=== PATIENT | female | born 1975 | race Caucasian/White ===

== ENCOUNTER 2020-09-26 13:59 | Outpatient (REF) | payer OTHER, SELFPAY | END 2020-09-26 14:00 | disposition home or self-care (01) | LOC: HO.LAB 13:59 | PROVIDERS: PCP Internal Medicine; Visit Provider Internal Medicine | DX: Z20.828 Contact with and (suspected) exposure to other viral communicable diseases (principal) | CPT/HCPCS: 36415; C9803; U0003 ==

== ENCOUNTER 2021-06-28 11:47 | Emergency (ER) | payer OTHER, SELFPAY ==
--- NOTE | ~2021-06-28 | XR_ITS ---
EXAMINATION: XR CHEST CLINICAL INFORMATION: Chest tightness. COMPARISON: None TECHNIQUE: Frontal view of the chest was obtained. FINDINGS: Interval expanded and clear. Heart size and pulmonary vascularity is normal. No gross bony abnormality. XR/XR chest 1V IMPRESSION: Unremarkable chest exam.
--- NOTE | 2021-06-28 12:02 | ECG_ITS ---
Test Reason : CHEST PAIN Blood Pressure : / mmHG Vent. Rate : 072 BPM Atrial Rate : 072 BPM P-R Int : 136 ms QRS Dur : 100 ms QT Int : 394 ms P-R-T Axes : 036 -16 030 degrees QTc Int : 431 ms Normal sinus rhythm Low voltage QRS Incomplete right bundle branch block Borderline ECG When compared with ECG of 31-OCT-2017 12:44, No significant change was found Referred By: Generic ED Physician Electronically Signed By:NOA GR
[2021-06-28 13:02] LABS: Influenza A PCR NEGATIVE (Negative); Influenza B PCR NEGATIVE (Negative); Resp Syncy Virus RNA Qual PCR NEGATIVE (Negative); SARS COV2 PCR INHOUSE NEGATIVE (Negative)
[2021-06-28 13:08] VITALS: BP 124/82; PULSE 74; RESP 18; TEMP 36.9; O2SAT 97; BMI 31.1
[2021-06-28 18:00] VITALS: BP 119/79; PULSE 69; RESP 17; TEMP 36.7; O2SAT 96
--- NOTE | 2021-06-28 19:05 | ED.URI ---
HPI - URI/Sore Throat General Chief Complaint: Dyspnea Stated Complaint: chest tightness diff breathing cough fever Time Seen by Provider: 06/28/21 19:05 Source: patient Mode of arrival: ambulatory Limitations: no limitations History of Present Illness HPI Narrative: 45-year-old female presents with upper respiratory symptoms for over 2 weeks. States that she has been using her albuterol and her DuoNeb inhalers with poor effect. She normally gets bronchitis twice a year during the peak of her allergies. MD elicited complaint: cough, rhinorrhea, nasal congestion and sinus pain Pertinent past history: sinusitis, asthma, seasonal allergies and other (Chronic bronchitis) Onset (ago): week(s) (3) Consistency: constant Severity: moderate Description of mucous: clear and watery Able to tolerate fluids by mouth: No Exacerbating factors: speaking and deep breaths Relieving factors: nothing Associated symptoms: voice changes, nasal congestion, sore throat, cough and shortness of breath Related Data Previous Rx's Medication Instructions Recorded azithromycin 250 mg tablet 250 mg PO DAILY #4 tab 06/28/21 benzonatate 100 mg capsule 100 mg PO TID PRN #30 cap 06/28/21 (Vincent Gaytan) prednisone 20 mg tablet 40 mg PO DAILY 4 Days #8 tab 06/28/21 Allergies Allergy/AdvReac Type Severity Reaction Status Date / Time acetaminophen [From Tylenol] Allergy Unknown HIVES Verified 06/28/21 13:07 gabapentin [GABAPENTIN] Allergy Unknown HIVES Verified 06/28/21 13:07 oxycodone Allergy Itching Verified 06/28/21 13:08 Review of Systems Review of Systems: Constitutional: No Fever, No Chills ENT/Mouth: No Ear Pain, positive Hoarseness, positive sore throat Eyes: No Eye Pain, No Swelling, No Redness, No Foreign Body Cardiovascular: No Chest Pain, No SOB Respiratory: Positive Cough, positive Dyspnea Gastrointestinal: No Nausea, No Vomiting, No Diarrhea, No abdominal Pain Genitourinary: No Dysuria, No Hematuria Musculoskeletal: No joint pain, No Myalgias, No Joint Swelling Skin: No Skin lacerations, No rash Neuro: No Weakness, No Numbness, No Paresthesias, No Loss of Consciousness, No Dizziness, No Headache Psych: No Anxiety/Panic, No Depression Heme/Lymph: no easy bruising, no Lymphadenopathy Endocrine: No Polyuria, No Polydipsia Yes all other systems are reviewed and are negative REPLACED BY [facility] Past Medical History Attestation statement: The following information was validated with the patient. Source: old records reviewed Medical History Pulmonary embolism Social History Social History Advance Directives: No Advance Directives Information Provided: No Patient : No Physical Exam Vital Signs: Vital Signs: Last Vital Signs Temp 98.1 F 06/28/21 18:00 Pulse 69 06/28/21 18:00 Resp 17 06/28/21 18:00 BP 119/79 06/28/21 18:00 Pulse Ox 96 06/28/21 18:00 Body Mass Index 31.1 Appearance: Alert. Oriented X3. Mild distress. Eyes: Pupils equal, round and reactive to light. Sclera nonicteric. ENT: Pharynx normal. Voice is hoarse. Moist mucous membranes. Neck: Normal inspection. Neck supple. No cervical lymphadenopathy. CVS: Normal heart rate and rhythm. Pulses normal. Respiratory: No respiratory distress. Minimal scattered wheezes at the bases. Even unlabored respirations. Abdomen: Soft and nontender. Skin: Skin warm and dry. Normal skin color. Normal skin turgor. Extremities: No lower extremity edema. Gait well balanced well coordinated. Neuro: No motor deficit. No sensory deficit. Cranial nerves 2-12 intact. Course Course Course Narrative: Patient presents with approximately 3 weeks of upper respiratory symptoms. Gets chronic bronchitis twice a year in the spring and in the fall, was unable to get appointment with her primary care. Patient is afebrile, nontoxic appearing, has been using her albuterol and DuoNeb inhalers with poor effect. X-rays are negative, lung sounds have minimal wheezing at the bases with good air flow. Even unlabored respirations. O2 sat 97% on room air with normal heart rate of 74. COVID test is negative. Azithromycin and prednisone burst as patient does have prolonged symptoms, asthma, and seasonal allergies. Patient verbalized understanding of and agrees to plan of care discharge home. MDM - URI/Sore Throat Differential Diagnosis Differential diagnosis: Likely upper respiratory infection, otitis media, sinusitis, viral infection, bronchitis, influenza and pharyngitis Medical Records Attestation: I reviewed the patient's medical records. Lab Data Attestation: I reviewed the patient's lab results. Labs: Lab Results 06/28/21 Range/Units 12:15 Coronavirus (PCR) NEGATIVE (Negative) Influenza Type A (PCR) NEGATIVE (Negative) Influenza Type B (PCR) NEGATIVE (Negative) RSV RNA Qual (PCR) NEGATIVE (Negative) Imaging Data Chest x-ray: Attestation: I personally reviewed and interpreted this imaging study as follows: Radiologist's impression: EXAMINATION: XR CHEST CLINICAL INFORMATION: Chest tightness. COMPARISON: None TECHNIQUE: Frontal view of the chest was obtained. FINDINGS: Interval expanded and clear. Heart size and pulmonary vascularity is normal. No gross bony abnormality. XR/XR chest 1V IMPRESSION: Unremarkable chest exam. ? ECG Data Attestation: I personally reviewed and interpreted this ECG as follows: ECG interpretation date: 06/28/21 ECG interpretation time: 12:15 Prior ECG tracings: available for review Interpretation: Vent. rate 72 BPM NV interval 136 ms QRS duration 100 ms QT/QTc 394/431 ms P-R-T axes 36 -16 30 Normal sinus rhythm Low voltage QRS Incomplete right bundle branch block Borderline ECG When compared with ECG of 31-OCT-2017 12:44, No significant change was found Discharge Plan Discharge Clinical Impression: Bronchitis Patient Disposition: Home, Self-Care Instructions: Acute Bronchitis (ED) Additional Instructions: You were evaluated for upper respiratory symptoms. Please take azithromycin and prednisone as directed. Use Tessalon Perles as needed for cough. Thank you for choosing this emergency department for evaluation. Please follow-up with primary care physician as needed. Return to the emergency department for any new, concerning, or worsening symptoms. Prescriptions: New azithromycin 250 mg tablet 250 mg PO DAILY Qty: 4 RF: 0 prednisone 20 mg tablet 40 mg PO DAILY 4 Days Qty: 8 RF: 0 benzonatate [Tessalon Perles] 100 mg capsule 100 mg PO TID PRN (Reason: cough) Qty: 30 RF: 0 Stand Alone Forms: Work/School Release Interventions: ED Discharge Assessment Last Done: 06/28/21 19:30 Discharge Date/Time: 06/28/21 19:34
[2021-06-28] MEDS: predniSONE 20 MG TABLET 40 MG PO (19:27)
[2021-06-28] MEDS: Benzonatate 100 MG CAPSULE PO (19:27)
[2021-06-28] MEDS: Azithromycin 500 MG TABLET PO (19:27)
== END 2021-06-28 19:34 | disposition home or self-care (01) ==
PROVIDERS: Emergency Provider Emergency Medicine; PCP Internal Medicine
DX: J40 Bronchitis, not specified as acute or chronic (principal); J45.909 Unspecified asthma, uncomplicated; Z79.899 Other long term (current) drug therapy; Z86.711 Personal history of pulmonary embolism; Z20.822 Contact with and (suspected) exposure to COVID-19
CPT/HCPCS: 0241U; 36415; 71045; 93005; 99283; 99284

== ENCOUNTER 2021-07-10 18:06 | Emergency (ER) | payer OTHER, SELFPAY ==
[2021-07-10 19:08] VITALS: BP 138/88; PULSE 73; RESP 18; TEMP 36.7; O2SAT 100; BMI 30.1
[2021-07-10] MEDS: Ibuprofen 600 MG TABLET PO (19:13)
[2021-07-10 19:57] VITALS: BP 127/76; PULSE 62; RESP 16; TEMP 36.7; O2SAT 96
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
[2021-07-10] MEDS: Cyclobenzaprine HCl 10 MG TABLET PO (21:06)
[2021-07-10] MEDS: Lidocaine 4 % Patch ADH..PATCH 1 PATCH TRANSDERMA (21:07)
== END 2021-07-10 22:06 | disposition home or self-care (01) ==
PROVIDERS: Emergency Provider Emergency Medicine; PCP Internal Medicine
DX: S39.012A Strain of muscle, fascia and tendon of lower back, initial encounter (principal); M54.2 Cervicalgia; V89.2XXA Person injured in unspecified motor-vehicle accident, traffic, initial encounter; Y93.9 Activity, unspecified; Y92.410 Unspecified street and highway as the place of occurrence of the external cause; Y99.9 Unspecified external cause status
CPT/HCPCS: 99283; 99284

== ENCOUNTER 2023-07-21 13:45 | Outpatient (AMB) | payer OTHER, SELFPAY ==
--- NOTE | 2023-07-21 13:51 | A.OFFVIS_ITS ---
Intake Intake Visit Reasons: abd pain, U/S shows gallstones Intake Note: This patient presents for an assessment for abdominal pain. Patient c/o; Onset 6 weeks, reports occasional RUQ pain, US done at [place]. Regulatory Submissions Specialist Required: No Accompanied by: Other Relationship Allergies acetaminophen [From Tylenol] Allergy (Unknown, Verified 07/21/23 13:54) HIVES gabapentin [GABAPENTIN] Allergy (Unknown, Verified 07/21/23 13:54) HIVES oxycodone Allergy (Verified 07/21/23 13:54) Itching Medication List - Last Reconciled 07/21/23 by Bernardo Trinh MD albuterol sulfate 90 mcg/actuation inhalation azithromycin 250 mg PO DAILY benzonatate (Tessalon Perles) 100 mg PO TID PRN budesonide-formoterol 160-4.5 mcg/actuation (Symbicort) 2 puffs inhalation BID cyclobenzaprine 5 mg PO Q8H PRN 5 days fexofenadine 180 mg PO DAILY fluticasone propion-salmeterol 230-21 mcg/actuation (Advair HFA) 2 puffs inhalation BID lidocaine 5% (Lidoderm) 1 patch topical DAILY PRN MDD remove after 12 hours montelukast 10 mg PO BEDTIME naproxen 500 mg PO BID PRN 10 days prednisone 40 mg (2 x 20 mg) PO DAILY 4 days HPI abd pain, U/S shows gallstones HPI Details 47[facility] She says for the past 2-3 months, she has been having frequent episodes of right upper quadrant pain and tenderness. She says that these radiate to the back. She does not recall a significant aggravating factor. She does state that she also has frequent bloating with meals. She had an ultrasound done as an outpatient and this showed gallstones. She was therefore referred to me by her primary care physician. [facility] Medical History (Updated 07/21/23 @ 14:05 by Bernardo Trinh MD) Asthma Gallstones Pulmonary embolism Surgical History (Updated 07/10/21 @ 19:11 by Kellen Mukherjee RN) Previous back surgery Review of Systems Const Denies chills and Denies fever(s) Card Denies chest pain, Denies dyspnea and Denies dyspnea on exertion Resp Denies cough, Denies dyspnea and Denies dyspnea on exertion GI Denies hematochezia and Denies change in bowel habits Denies hematuria Musc Denies back pain and Denies limited range of motion Neuro Denies focal weakness and Denies convulsions Psych Denies depression and Denies mood swings Physical Exam Const General: comfortable and no acute distress Orientation/consciousness: patient oriented x3 Neck Neck: Yes no lymphadenopathy Resp Auscultation: clear to auscultation bilaterally Cardio Rhythm: regular rhythm GI Palpation (GI): Soft to palpation, nontender and no guarding Neuro General: patient oriented x3 Assessment & Plan Assessment & Plan (1) Gallstones: Code(s): K80.20 - Calculus of gallbladder without cholecystitis without obstruction Plan: She describes periodic right upper quadrant pain being to the back. This has been going on for about 2-3 months. She her ultrasound shows gallstones. Her symptoms are suggestive of biliary colic. I explained to her the technique of laparoscopic cholecystectomy and possible open cholecystectomy. I reviewed the risks including but not limited to bleeding, infections, injury to other organs including bowel, liver and the bile ducts, retained stones, bile leak, as well as the benefits and alternatives. She says she understands and wants to proceed. She has history of PE after suffering a leg fracture in 2009. She was on anticoagulation for about a year. I have disc of her ultrasound done in [facility]. I will review this with our radiologist. Coding Level of Care Code New Pt Level 3 (80159) Diagnoses Gallstones K80.20
== END 2023-07-21 14:07 | disposition home or self-care (01) ==
PROVIDERS: PCP Internal Medicine; Visit Provider Surgery
DX: K80.20 Calculus of gallbladder without cholecystitis without obstruction (principal)
CPT/HCPCS: 99203

== ENCOUNTER → 2023-07-21 13:45 | Outpatient (BNVA) | payer OTHER, SELFPAY | PROVIDERS: PCP Internal Medicine; Visit Provider Surgery ==

== ENCOUNTER 2023-08-19 06:51 | Day surgery (SDC) | payer OTHER, SELFPAY ==
--- NOTE | 2023-08-18 09:56 | HO.ANESPROP2 ---
Documented by User: Sofia Blum NP 08/18/23 09:56 HPI - Anesthesia Eval Consult details Narrative: 48yo F for Cholecystectomy Laparoscopic, possible open PMFSH Active Problems Active Problems: All Active Problems (Updated 08/13/23 @ 07:45 by Haley Roberts RN) Asthma (Acute) Gallstones (Acute) Past Medical History Medical History Asthma Gallstones Pulmonary embolism Surgical History Surgical History Previous back surgery Social History Patient Tobacco Use Status: Former Tobacco user Quit Date: 7 years ago Use of substances other than those prescribed or required for medical reasons: Yes Substance Use Frequency: Occasionally Are you DNR?: No Advance Directives: No Advance Directives Information Provided: Yes Meds Allergies Allergy/AdvReac Type Severity Reaction Status Date / Time acetaminophen [From Tylenol] Allergy Unknown HIVES Verified 08/19/23 07:30 gabapentin [GABAPENTIN] Allergy Unknown HIVES Verified 08/19/23 07:30 oxycodone Allergy Itching Verified 08/19/23 07:30 Home Medications Medication Instructions Recorded Confirmed Last Taken Type albuterol sulfate 90 mcg/actuation 90 mcg inhalation NEEDED 07/21/23 08/19/23 08/19/23 History aerosol inhaler budesonide-formoterol HFA 160 2 puff inhalation BID 07/21/23 07/21/23 Unknown History mcg-4.5 mcg/actuation aerosol inhaler (Symbicort) fexofenadine 180 mg tablet 180 mg PO DAILY 07/21/23 07/21/23 Unknown History fluticasone propionate 230 2 puff inhalation BID 07/21/23 07/21/23 Unknown History mcg-salmeterol 21 mcg/actuation HFA inhaler (Advair HFA) montelukast 10 mg tablet 10 mg PO BEDTIME 07/21/23 07/21/23 Unknown History Assessment and Plan Assessment Anesthesia Assessment: Chart Reviewed Documented by User: Linda Chaudhari MD 08/19/23 08:53 PMFSH Active Problems Active Problems: All Active Problems (Updated 08/19/23 @ 08:35 by Linda Chaudhari MD) Asthma (Acute)- used albuterol inhaler this morning Gallstones (Acute) H/o pulmonary emboli x 2- 2010 (immobilization, bcp, ankle fracture. Anticoagulants x 1yr). 2018 following immobilization- Anticoagulated x 6 months. No testing for hypercoagulable stste Back pain. H/o back surgery Past Medical History Medical History Asthma Gallstones Pulmonary embolism Family History Family history of problems with anesthesia: No Surgical History Surgical History Previous back surgery History of Problems with Anesthesia: No Social History Patient Tobacco Use Status: Former Tobacco user Quit Date: 7 years ago Use of substances other than those prescribed or required for medical reasons: Yes Substance Use Frequency: Occasionally Are you DNR?: No Advance Directives: No Advance Directives Information Provided: Yes Meds Allergies Allergy/AdvReac Type Severity Reaction Status Date / Time acetaminophen [From Tylenol] Allergy Unknown HIVES Verified 08/19/23 07:30 gabapentin [GABAPENTIN] Allergy Unknown HIVES Verified 08/19/23 07:30 oxycodone Allergy Itching Verified 08/19/23 07:30 Home Medications Medication Instructions Recorded Confirmed Last Taken Type albuterol sulfate 90 mcg/actuation 90 mcg inhalation NEEDED 07/21/23 08/19/23 08/19/23 History aerosol inhaler budesonide-formoterol HFA 160 2 puff inhalation BID 07/21/23 07/21/23 Unknown History mcg-4.5 mcg/actuation aerosol inhaler (Symbicort) fexofenadine 180 mg tablet 180 mg PO DAILY 07/21/23 07/21/23 Unknown History fluticasone propionate 230 2 puff inhalation BID 07/21/23 07/21/23 Unknown History mcg-salmeterol 21 mcg/actuation HFA inhaler (Advair HFA) montelukast 10 mg tablet 10 mg PO BEDTIME 07/21/23 07/21/23 Unknown History Exam Height,Weight and Vital Signs: Height 5 ft 3 in Weight 72.688 kg Vital Signs Temp Pulse Resp BP Pulse Ox O2 Del Method 08/19/23 07:26 98.6 F 74 18 121/73 98 Room Air Pertinent Lab Results Pertinent Lab Results: Lab Results 08/19/23 Range/Units 07:15 Urine Test NEGATIVE (NEGATIVE) Airway Mallampati Class: II TM Dist: >3cm Neck ROM: Full Loose/Missing/Broken Teeth: No (Denies broken, loose, missing teeth) Heart: RRR Lungs: CTAB. No wheezes Assessment and Plan Assessment Anesthesia Assessment: Anesthesia Plan Discussed Final Anesthetic Review Family History of Problems with Anesthesia: No History of Problems with Anesthesia: No NPO: Yes ASA Class: II Final Preanesthetic Review: No Changes in Pt Med Stat, Meds/Allgs Chart Reviewed, Consent Obtained/Reviewed and Anes Risks/Benef Reviewed Patient Risk: Intermediate Procedure Risk: Intermediate Assessment/Block/Sedation in SS: Assess/Block/Sedation- Anesthetic Plan Anesthetic Plan: GA Disposition: Standard PACU
[2023-08-19] VITALS (12 sets, daily range): BP systolic 100–124; BP diastolic 58–73; PULSE 46–74; RESP 12–18; TEMP 36.2–37; O2SAT 94–100; BMI 28.4
[2023-08-19 07:31] LABS: UPreg QC Valid YES; Urine Pregnancy NEGATIVE (NEGATIVE)
--- NOTE | 2023-08-19 08:18 | MHC.SHP ---
Pre-Procedural Eval Section A Date of Service: 08/19/23 The patient is an INPATIENT: No Changes since office visit: No Cold of Flu in the past 2 weeks, No New Medical Problems, No Changes in Medication and No Patient answered all questions The History & Physical has been completed within 30 days and I have reviewed it.: Yes Section B Chief Complaint: Calculus of gallbladder without cholecystitis with Allergies: Allergies Allergy/AdvReac Type Severity Reaction Status Date / Time acetaminophen [From Tylenol] Allergy Unknown HIVES Verified 08/19/23 07:30 gabapentin [GABAPENTIN] Allergy Unknown HIVES Verified 08/19/23 07:30 oxycodone Allergy Itching Verified 08/19/23 07:30 Plan I have reviewed the history and physical and performed a pertinent physical examination on my patient. No changes have occurred unless specified. Time Spent With Patient Time: Total time managing care of this patient today ____ minutes.
--- NOTE | 2023-08-19 09:48 | P.OP_ITS ---
Operative Note Operative Note Date of Service: 08/19/23 Narrative: Preop diagnosis: Cholelithiasis with symptoms Postop diagnosis: The same Procedure: Laparoscopic cholecystectomy Surgeon: Bernardo Trinh MD tourist information assistant: ELA Maloney The patient is a 48-year-old female periodically right upper quadrant pain, with gallstones seen on ultrasound. In view of symptoms, she wants to proceed with cholecystectomy. She understood the technique of laparoscopic cholecystectomy. She was aware of the risks, benefits, and alternatives. She was brought to the operating room. She was placed supine under general anesthesia via endotracheal tube. The abdomen was prepped and draped in the usual sterile fashion. A surgical time-out was done. The patient received Cefotan 2 g IV preoperatively I made a short incision on the skin in the supraumbilical margin using a blade 15. This was carried down with blunt dissection the full-thickness of the subcutaneous fat down to the fascia . The she was incised. The peritoneum was entered. Through this incision a Seth port was introduced. Pneumoperitoneum was introduced to a pressure of 15 mmHg. From here on the rest of the procedure was done under vision with a 10 mm laparoscope . With laparoscopic visua lization, I proceeded to insert a 5/12 bili 40 the gastric area below the subcostal margin as well as two 5 mm ports on the subcostal margin along the anterior axillary line and the midclavicular line. Graspers were applied through these working ports. The patient is placed in a head-up and [id number] position. The gallbladder was seen and this was supple and not inflamed. We were able to apply grasper the fundus and this was used to retract the gallbladder cephalad. Another grasper was applied on the pouch of the gallbladder and this was used to retract the gallbladder laterally. At this point the gallbladder was be new tract in the cephalad and lateral fashion to put the area of the cystic duct on stretch. I proceeded to use the [place] dissector to clear the neck of the gallbladder until I was able to identify the cystic duct. I carefully dissected the cystic duct until I was able to confirm its confluence with the neck of the gallbladder. By doing so, I was able to achieve a critical view of the hepatic cystic triangle. The cystic artery was clearly identified and there were no other structures seen in this area. With the confluence of the cyst duct with the neck of the gallbladder confirmed, I proceeded to apply clips on the cystic duct with 2 clips being applied distally. The cystic duct was then transected between clips with Endo scissors. I then apply clips on the cystic artery and this was transected between clips with Endo scissors. Two clips had been applied distally . With traction on the gallbladder away from the liver bed, I proceeded to then used the electrocautery spatula to divide across the hilum. I incised the peritoneum of the gallbladder wall and created a plane of dissection the gallbladder wall and the liver bed. I the gallbladder along this well-defined plane of dissection using a combination of blunt dissection with the tip of the spatula as well as electrocautery. I continued with this dissection all the fundus until the entire gallbladder is completely from the liver bed. The gallbladder was retrieved through an endobag through the umbilical incision . I reinserted all ports and re-insufflated. I examined all 4 quadrants and there was no other pathology or any evidence of any bowel injury seen. There was no bile leak in the area of dissection. There was no bleeding . I therefore desufflated through the port sites. I removed all ports under vision with the laparoscope. a laparoscopic. The umbilical port was removed last. The fascia of the umbilical incision was closed with a [id number] Polysorb 0 stitch. Skin closure was achieved on all incisions using Monocryl 4- 0 subcuticular running sutures. The incisions were infiltrated with Marcaine 0.5% for postop analgesia. Dressings were applied. The procedure was completed. The patient tolerated procedure well. There were no immediate complications. Initial and final counts of sponges and instruments were correct. Estimated blood loss was about 10 cc The patient was extubated without difficulty and transferred to the recovery room with stable vital signs.
[2023-08-19] MEDS: oxyCODONE HCl Immed Release 5 MG TABLET PO (10:19)
[2023-08-19] MEDS: fentaNYL citrate/PF 100 MCG/2 ML VIAL 25 MCG IVPUSH ×2 (10:42→10:48)
== END 2023-08-19 11:20 | disposition home or self-care (01) ==
PROVIDERS: Nurse Practitioner; PCP Internal Medicine; Visit Provider Surgery
PROC: 0FT44ZZ Resection of Gallbladder, Percutaneous Endoscopic Approach (ICD-10-PCS; CPT 47562; principal; 2023-08-19 09:10)
DX: K80.10 Calculus of gallbladder with chronic cholecystitis without obstruction (principal); J45.909 Unspecified asthma, uncomplicated; Z79.51 Long term (current) use of inhaled steroids; Z79.899 Other long term (current) drug therapy; Z86.711 Personal history of pulmonary embolism; Z88.5 Allergy status to narcotic agent; Z88.8 Allergy status to other drugs, medicaments and biological substances; Z87.891 Personal history of nicotine dependence
CPT/HCPCS: 47562; 81025; 88304; J0131; J0665; J1885; J2250; J2405; J2704; J3010

== ENCOUNTER → 2023-08-19 06:51 | Outpatient (BNV) | payer OTHER, SELFPAY | PROVIDERS: PCP Internal Medicine; Visit Provider Surgery | DX: K80.20 Calculus of gallbladder without cholecystitis without obstruction (principal) | CPT/HCPCS: 47562 ==

== ENCOUNTER 2023-09-01 10:06 | Outpatient (AMB) | payer OTHER, SELFPAY ==
--- NOTE | 2023-09-01 10:19 | A.OFFVIS_ITS ---
Intake Vital Signs 09/01/23 10:28 Height 5 ft 2 in Weight 159 lb BMI 29.1 BP 96/52 L Blood Pressure Location Lt brachial Position Sitting Pulse 68 Intake Visit Reasons: S/P lap nathen Intake Note: This patient presents for a post-op assessment status post laparoscopic cholecystectomy. Pt c/o; admits to some diarrhea, and sore/tender, incision on the left side is protuding per pt, denies any other concerns Utilization Management Um Nurse Required: No Accompanied by: Self / Same As Patient Allergies acetaminophen [From Tylenol] Allergy (Unknown, Verified 09/01/23 10:28) HIVES gabapentin [GABAPENTIN] Allergy (Unknown, Verified 09/01/23 10:28) HIVES oxycodone Allergy (Verified 09/01/23 10:) Itching HPI S/P lap nathen HPI Details She underwent laparoscopic cholecystectomy as an outpatient last 08/19/2023. She tolerated procedure well. She currently denies significant complaints. She says she feels well overall. [facility] Medical History Asthma Gallstones Pulmonary embolism Surgical History History of laparoscopic cholecystectomy (~08/19/23) Previous back surgery Social History Patient Tobacco Use Status: Former Tobacco user Quit Date: 7 years ago Review of Systems Const Denies chills and Denies fever(s) Card Denies chest pain, Denies dyspnea and Denies dyspnea on exertion Resp Denies cough, Denies dyspnea and Denies dyspnea on exertion GI Denies hematochezia and Denies change in bowel habits Denies hematuria Musc Denies back pain and Denies limited range of motion Neuro Denies focal weakness and Denies convulsions Psych Denies depression and Denies mood swings Physical Exam Vital Signs: Last Vital Signs Pulse 68 09/01/23 10:28 BP 96/52 L 09/01/23 10:28 BMI result Body Mass Index 29.1 Const General: comfortable and no acute distress Eyes Sclerae: sclerae normal GI Other: All incisions are well healed Palpation (GI): Soft to palpation, not firm and nontender Assessment & Plan Assessment & Plan (1) Gallstones: Code(s): K80.20 - Calculus of gallbladder without cholecystitis without obstruction Plan: Status post laparoscopic cholecystectomy. She is doing very well postoperatively. All incisions are well healed. I advised her to avoid any lifting more than 20 lb for at least 2-3 more weeks. She can otherwise follow up on a p.r.n. basis. Coding Level of Care Code Global (06835) Diagnoses Gallstones K80.20
[2023-09-01 10:28] VITALS: BP 96/52; PULSE 68; BMI 29.1
== END 2023-09-01 10:47 | disposition home or self-care (01) ==
PROVIDERS: PCP Internal Medicine; Visit Provider Surgery
DX: K80.20 Calculus of gallbladder without cholecystitis without obstruction (principal)
CPT/HCPCS: 99024

== ENCOUNTER → 2023-09-01 10:06 | Outpatient (BNVA) | payer OTHER, SELFPAY | PROVIDERS: PCP Internal Medicine; Visit Provider Surgery ==

== ENCOUNTER 2024-01-08 13:58 | Outpatient (REF) | payer OTHER, SELFPAY ==
--- NOTE | ~2024-01-08 | XR_ITS ---
EXAMINATION: XR CHEST CLINICAL INFORMATION: Unspecified asthma, uncomplicated COMPARISON: Chest 06/28/2021, CT chest 05/05/2019 TECHNIQUE: 2 views of the chest were obtained. FINDINGS: No significant abnormality is noted involving the heart, lungs, mediastinum, bony thorax or soft tissues. Surgical clips are seen in the right upper quadrant. 4 mm and smaller nodules seen on CT chest 05/05/2019 are too small to be appreciated on chest radiograph. XR/XR chest 2V IMPRESSION: No acute cardiopulmonary disease.
[2024-01-08 14:52] LABS: MANUAL DIFF FLAG NO
[2024-01-08 15:35] LABS: Basophils Percent Auto 0.5 % (0-2); Eosinophils Absolute Auto 0.5 X10*3/uL (0.0-0.4); Hematocrit 42.2 % (37.0-47.0); Hemoglobin 14.7 g/dl (12.0-16.0); Imm Gran Abs Auto 0.02 X10*3/uL (0.00-0.03); Imm Gran Pct Auto 0.3 % (0.0-0.4); Lymphocytes Absolute Auto 2.5 X10*3/uL (1.2-4.9); Lymphocytes Percent Auto 34.1 % (20-40); Mean Corpuscular HGB Conc 34.8 g/dl (31.0-35.0); Mean Corpuscular Hemoglobin 31.3 pg (27.0-33.0); Mean Platelet Volume 10.2 fL (9.4-12.3); Monocytes Absolute Auto 0.6 X10*3/uL (0.1-1.2); Monocytes Percent Auto 8.1 % (2-11); Neutrophils Absolute Auto 3.7 x10*3/uL (2.0-8.3); Platelet Count 277 X10*3/uL (160-400); Red Blood Count 4.69 X10*6/uL (4.20-5.50); Red Cell Distribution Width 11.9 % (11.0-16.0); White Blood Count 7.4 X10*3/uL (4.8-10.8)
== END 2024-01-08 13:59 | disposition home or self-care (01) ==
LOC: HO.XRAY 13:58
PROVIDERS: PCP Internal Medicine; Visit Provider Internal Medicine
DX: J45.909 Unspecified asthma, uncomplicated (principal)
CPT/HCPCS: 36415; 71046; 85025

== ENCOUNTER 2024-01-08 13:58 | Outpatient (AMB) | payer OTHER, SELFPAY ==
[2024-01-08 14:05] VITALS: BP 102/70; PULSE 66; O2SAT 97; BMI 29.6
--- NOTE | 2024-01-08 14:05 | MHC.OFFVIS ---
Vital Signs 01/08/24 14:05 Height 5 ft 2 in Weight 162 lb 0.636 oz BMI 29.6 BP 102/70 Blood Pressure Location Lt brachial Position Sitting Pulse 66 Pulse Source Pulse Oximeter Pulse Oximetry (%) 97 Oxygen Delivery Method Room Air Intake Visit Reasons: Asthma Intake Note: pt is here at a new patient, for asthma triggered by allergies. 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: No Allergies acetaminophen [From Tylenol] Allergy (Unknown, Verified 01/08/24 14:23) HIVES gabapentin [GABAPENTIN] Allergy (Unknown, Verified 01/08/24 14:23) HIVES oxycodone Allergy (Verified 01/08/24 14:23) Itching Medication List - Last Reconciled 01/08/24 by Maria R Lux MD albuterol sulfate 90 mcg/actuation 90 mcg inhalation NEEDED benzonatate 100 mg PO TID PRN budesonide-formoterol 160-4.5 mcg/actuation (Symbicort) 2 puffs inhalation BID cetirizine (Zyrtec) 10 mg PO DAILY PRN cyclobenzaprine 5 mg PO Q8H PRN 5 days ibuprofen 600 mg PO Q6H PRN lidocaine 5% (Lidoderm) 1 patch topical DAILY PRN MDD remove after 12 hours montelukast 10 mg PO BEDTIME naproxen 500 mg PO BID PRN 10 days Do you need a note to return to daycare/school/sports/work: No HPI HPI Asthma: Details: THIS 48 YEARS OLD VERY PLEASANT FEMALE IS BEING SEEN FOR THE 1ST TIME FOR, ONGOING MANAGEMENT OF HER BRONCHIAL ASTHMA AND ALLERGIC RHINITIS. SHE HAS HAD SYMPTOMS OF ASTHMA SINCE ABOUT 3-4 YEARS AGO. HER SYMPTOMS ARE MORE IN SPRING AND FALL MONTHS, BUT TO A LESSER EXTENT AROUND THE WHOLE YEAR. SHE HAS HISTORY OF ALLERGY TO ANIMALS, DUST AND OTHER ENVIRONMENTAL AGENTS. SHE HAS 1 DOG AT HOME AND HER DAUGHTER HAS 2 PUPPIES, ALSO A CT. SHE DESCRIBES HER SYMPTOMS GETTING WORSE DUE TO SEASONAL CHANGES. SINCE SHE WAS STARTED ON MONTELUKAST HER NASAL CONGESTION AND FREQUENCY OF WHEEZING HAS BEEN MUCH LESS. ALSO SINCE SHE WAS STARTED ON SYMBICORT SHORTNESS OF BREATH COUGH OR WHEEZING BECAME CONTROLLED AND MINIMAL. SHE HAS NEVER REQUIRED TO BE IN THE HOSPITAL. SHE REMAINS ACTIVE AND WORKS FULL-TIME ON A DAILY BASIS. SHE WORKS IN THE [employer] DEPARTMENT FOR [employer] 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 FORMERLY [facility] Medical History Allergic rhinitis Asthma Gallstones Pulmonary embolism Surgical History History of laparoscopic cholecystectomy (~08/19/23) Previous back surgery Social History Patient Tobacco Use Status: Former Tobacco user Quit Date: 7 years ago Review of Systems Const All systems reviewed & are unremarkable except as noted in HPI and below Eyes Reports no additional complaints ENT Reports nasal congestion (INTERMITTENT) and Reports nasal discharge (INTERMITTENT) Card Reports no additional complaints Resp Reports as per HPI GI Reports no additional complaints Reports no additional complaints Musc Reports no additional complaints Skin/Breast Reports system reviewed and no additional complaints, except as documented Neuro Reports no additional complaints Psych Reports no additional complaints Endo Reports no additional complaints Thad/Lymph Reports no additional complaints Physical Exam Vital Signs: Last Vital Signs Pulse 66 01/08/24 14:05 BP 102/70 01/08/24 14:05 Pulse Ox 97 01/08/24 14:05 Oxygen Delivery Method Room Air 01/08/24 14:05 BMI result Body Mass Index 29.6 Const General: healthy appearing, comfortable, no acute distress, alert and awake Orientation/consciousness: patient oriented x3 HEENT Head: Yes normal to inspection General nose exam: No nasal polyps present and No nasal discharge present Face and sinus: Yes sinuses nontender Mouth: oropharynx normal Throat: Yes posterior oropharynx normal Eyes General: appearance normal, both eyes and all related structures Neck Neck: Yes normal visual inspection, Yes no lymphadenopathy, Yes trachea midline and Yes no JVD Thyroid: Thyroid normal Chest Chest palpation & inspection: normal inspection of the chest and no tenderness Resp Other: PERCUSSION NOTE RESONANT, BOTH LUNGS ARE CLEAR TO AUSCULTATION, NO WHEEZES OR RHONCHI ARE HEARD. Cardio Palpation: normal PMI Rate: regular rate Rhythm: regular rhythm Heart sounds: no gallops and no murmurs Peripheral pulses: Peripheral pulses 2+ throughout GI Palpation (GI): Soft to palpation, nontender, No hepatosplenomegaly present and no masses Auscultation: normal bowel sounds Back/Spine/Pelvis Thoracic/Lumbar Spine: thoracic and lumbar spine normal to inspection Skin General skin exam: no rashes or lesions noted Neuro General: patient oriented x3 and no focal motor deficits Cranial nerves: Yes CN's II-XII intact bilaterally Extrem General: Yes normal to inspection, Yes no clubbing, cyanosis or edema and Yes no calf tenderness Psych Appearance: grossly normal and well kempt Speech and movement: Normal speech and movement present Assessment & Plan Assessment & Plan (1) Asthma: Comment: LONG-TIME HISTORY OF BRONCHIAL ASTHMA, MOSTLY ALLERGIC, . WELL CONTROLLED WITH CURRENT MED Code(s): J45.909 - Unspecified asthma, uncomplicated Category: Medical Plan: PULMONARY FUNCTION TEST A BASELINE IS ORDERED. CHEST X-RAY , AND CBC WITH DIFF ARE ORDERED BASELINE CONTINUE SYMBICORT 160-4.52 PUFFS B.I.D.. AND USE PROAIR 2 PUFFS Q 4-6 HOURS ONLY P.R.N. (2) Allergic rhinitis: Comment: CHRONIC ALLERGIC RHINITIS SECONDARY TO ENVIRONMENTAL AND SEASONAL ALLERGIES. SHE HAS DONE MUCH BETTER SINCE SHE IS ON MONTELUKAST. Code(s): J30.9 - Allergic rhinitis, unspecified Category: Medical Plan: STAY AWAY FROM THE ANIMALS. CONTINUE MONTELUKAST 10 MG DAILY. ZYRTEC 10 MG HAVE FOR 1 TABLET ONLY P.R.N. FOR RUNNY NOSE Orders: Orders XR chest 2V Today J30.9 - Allergic rhinitis, unspecified, J45.909 - Unspecified asthma, uncomplicated Complete Blood Count Auto Diff Today J30.9 - Allergic rhinitis, unspecified, J45.909 - Unspecified asthma, uncomplicated PFT pulmonary function test Today J30.9 - Allergic rhinitis, unspecified, J45.909 - Unspecified asthma, uncomplicated Medications: New budesonide-formoterol 160-4.5 mcg/actuation 2 puffs inhalation Q12H 90 days 10.2 grams 3RF ASTHMA albuterol sulfate 90 mcg/actuation 2 puffs inhalation Q4-6H 30 days PRN 8.5 grams 3RF shortness of breath or wheezing montelukast 10 mg PO DAILY 90 days 90 tabs 3RF ALLERGIC RHINITIS Changed From benzonatate (Tessalon Perles) 100 mg PO TID PRN 30 caps 0RF cough To benzonatate 100 mg PO TID PRN 30 caps 0RF cough
== END 2024-01-08 14:42 | disposition home or self-care (01) ==
PROVIDERS: PCP Internal Medicine; Visit Provider Internal Medicine
DX: J45.909 Unspecified asthma, uncomplicated (principal); J30.9 Allergic rhinitis, unspecified
CPT/HCPCS: 99203

== ENCOUNTER 2024-05-31 09:58 | Outpatient (AMB) | payer OTHER, SELFPAY ==
[2024-05-31 10:07] VITALS: BP 106/74; PULSE 61; O2SAT 97; BMI 28.8
--- NOTE | 2024-05-31 10:07 | MHC.PC.OV ---
Vital Signs 05/31/24 10:07 Height 5 ft 2 in Weight 157 lb 4 oz BMI 28.8 BP 106/74 Blood Pressure Location Rt brachial Position Sitting Pulse 61 Pulse Source Pulse Oximeter Pulse Oximetry (%) 97 Oxygen Delivery Method Room Air Intake Visit Reasons: JOB BOSS/Allergies/Asthma Intake Note: Pt is here today as a new patient. Allergies acetaminophen [From Tylenol] Allergy (Unknown, Verified 05/31/24 10:31) HIVES gabapentin [GABAPENTIN] Allergy (Unknown, Verified 05/31/24 10:31) HIVES oxycodone Allergy (Verified 05/31/24 10:31) Itching Medication List - Last Reconciled 05/31/24 by Liana Shepherd MD albuterol sulfate 90 mcg/actuation 2 puffs inhalation Q4-6H PRN 30 days budesonide-formoterol 160-4.5 mcg/actuation 2 puffs inhalation Q12H 90 days cetirizine (Zyrtec) 10 mg PO DAILY PRN hydroxyzine HCl 10 mg PO DAILY PRN ibuprofen 600 mg PO Q6H PRN montelukast 10 mg PO DAILY 90 days Tobacco use date assessed: 05/31/24 Dental Screening Dental Screen Date: 05/31/24 Did you have a dental visit in the last 12 months?: Yes Did you have a dental problem in the last 6 months where you did not have access to dental care?: No Was dental information given to patient?: Patient has dentist HPI JOB BOSS/Allergies/Asthma HPI Details 48-year-old lady, new to practice, here today to establish care with new PCP and for follow-up on her seasonal allergies and mild intermittent asthma . She is currently taking budesonide/formoterol 2 puffs twice a day, and has albuterol inhaler for rescue for episodes of bronchospasm. She also takes cetirizine 10 mg at bedtime as needed and montelukast 10 mg daily. Has been complaining having intermittent episodes of anxiety attacks, usually occurring at night, has not been seen or followed by psychiatry or therapist in the past. She also has been diagnosed to have supraventricular tachycardia, previously was being seen by Dr. Ben Hill, still having intermittent episodes of palpitations, needs referral to another dental resident in the area [facility] Medical History (Updated 05/31/24 @ 11:01 by Laina Shepherd MD) Paroxysmal SVT (supraventricular tachycardia) History of miscarriage, not currently Endometriosis Hx pulmonary embolism Hx of deep venous thrombosis History of fracture of right ankle Anxiety disorder Allergic rhinitis Asthma Gallstones Pulmonary embolism Surgical History (Updated 05/31/24 @ 10:46 by Liana Shepherd MD) History of appendectomy History of lumbar discectomy History of laparoscopic cholecystectomy (~08/19/23) Previous back surgery Family History (Updated 05/31/24 @ 10:49 by Liana Shepherd MD) Mother No problems noted. Daughter Owen-Danlos syndrome Sister Bronchial asthma Brother Drug abuse Suicide Social History (Updated 05/31/24 @ 10:49 by Liana Shepherd MD) Housing: House Alcohol intake: current Alcohol intake frequency: holidays/special occasions only Patient Tobacco Use Status: Former Tobacco user e-Cigarette/Vaping Use: Never Used service: No Current occupational status: employed Cognitive needs: No Hearing needs: No Vision needs: Yes Female Reproductive History Menstrual Date of last menstrual period: 05/17/24 Date of last [place] 03/01/22 [place] [facility] [place]epithelial [place] or malignancy, negative for HPV[place] Date of Mammogram: 01/18/23 [place] [facility] [place] mammographic evidence of malignancy seen) Questionnaire PHQ-9 Over the last 2 weeks, how often have you been bothered by any of the following problems? 1. Little interest or pleasure in doing things: several days 2. Feeling down, depressed, or hopeless: several days 3. Trouble falling or staying asleep, or sleeping too much: several days 4. Feeling tired or having little energy: more than half the days 5. Poor appetite or overeating: several days 6. Feeling bad about yourself - or that you are a failure or have let yourself or your family down: several days 7. Trouble concentrating on things, such as reading the newspaper or watching television: not at all 8. Moving or speaking so slowly that other people could have noticed. Or the opposite - being so fidgety or restless that you have been moving around a lot more than usual: not at all 9. Thoughts that you would be better off or of hurting yourself in some way: not at all Total score: 7 Depression Screening Interpretation: Negative Depression Screening Done: Yes 54645 - PHQ-9 Billing: Yes Source: Developed by Drs. Mickey Thurman, Ramona Zavala, Shaan Chapin and colleagues, with an educational chucky from [employer]. Thrive Questionnaire Date Thrive assessed: 05/31/24 I am a: Patient What is your living situation today?: I have a steady place to live Within the past 12 months, did the food you bought not last and you didn't have the money to get more?: Never true Within the past 12 months, did you worry whether your food would run out before you got money to buy more?: Never true Do you have trouble paying for medicines?: No Do you have trouble getting transportation to medical appointments?: No Do you have trouble paying your heating and electricity bill?: No Do you have trouble taking care of your child, family member or friend?: No Do you have trouble with day-to-day activities such as bathing, preparing meals, shopping, managing finances, etc.?: No Are you currently unemployed and looking for a job?: No Are you interested in more education?: No Please select the resources that you would like help with: None Currently or been in a relationship where the following occur: No concerns reported THRIVE Score: 0 AUDIT C Alcohol Use Questionnaire (AUDIT-C) 1. How often do you have a drink containing alcohol?: 2-4 times a month 2. How many drinks containing alcohol do you have on a typical day when you are drinking?: 1 or 2 3. How often do you have six or more drinks on one occasion?: Never Total Score: 2 Score Reviewed/Action Taken: Yes HANNAH-7 AMB Questionnaire HANNAH-7 Date HANNAH - 7 assessed: 05/31/24 Feeling nervous, anxious, or on edge: 1 = Several days Not being able to stop or control worryin = Several days Worrying too much about different things: 1 = Several days Trouble relaxin = Nearly every day Being so restless that it is hard to sit still: 1 = Several days Becoming easily annoyed or irritable: 1 = Several days Feeling afraid as if something awful might happen: 1 = Several days Total HANNAH-7 score (0-4 normal; 5-9 mild; 10-14 moderate; 15-21 severe): 9 Source: Developed by Drs. Mickey Thurman, Ramona Zavala, Shaan Chapin and colleagues, with an educational chucky from [employer]. HANNAH-7 Assessment Billing HANNAH-7 Assessment Tool: HANNAH-7 Assessment 08689 Review of Systems Const Denies body aches, Denies fatigue, Denies fever(s), Denies headache(s) and Denies weakness Eyes Denies change in vision, Denies eye discharge and Denies itchy eyes ENT Denies dizziness, Denies headache(s) and Denies sore throat Card Denies chest pain, Denies lightheadedness, Denies palpitations and Denies dyspnea Resp Denies chest congestion, Denies cough, Denies dyspnea and Denies wheezing GI Denies abdominal pain, Denies change in bowel habits and Denies heartburn Denies hematuria, Denies urinary frequency, Denies dysuria and Denies urinary urgency Musc Reports no additional complaints Skin/Breast Denies breast pain, Denies breast mass, Denies lesions and Denies rash Neuro Denies dizziness, Denies headache(s) and Denies weakness Psych Reports no additional complaints Endo Denies fatigue, Denies polydipsia, Denies polyuria and Denies palpitations Thad/Lymph Denies easy bruising Aller/Immun Denies itchy eyes, Denies seasonal rhinorrhea and Denies wheezing Physical exam (Primary Care) Vital Signs: Last Vital Signs Pulse 61 05/31/24 10:07 BP 106/74 05/31/24 10:07 Pulse Ox 97 05/31/24 10:07 Oxygen Delivery Method Room Air 05/31/24 10:07 BMI result Body Mass Index 28.8 Tobacco/Smoking Status: Tobacco use Status Tobacco use date assessed 05/31/24 05/31/24 10:12 Patient Tobacco Use Status Former Tobacco user 05/31/24 10:49 e-Cigarette/Vaping Use Never Used 05/31/24 10:49 PHQ-9: PHQ-9 Score PHQ-9: Total score 7 05/31/24 10:50 Depression Screening Interpretation: Negative Thrive Assessment: Date of Thrive Assessment Date Thrive assessed 05/31/24 05/31/24 10:12 Currently or been in a relationship where the following occur: No concerns reported Const General: no acute distress and alert Orientation/consciousness: patient oriented x3 HENMT Ears: external ears normal, TM's normal bilaterally and EAC's normal General nose exam: Normal external nose present and No nasal discharge present Mouth: Normal oral and palatal mucosa present, oropharynx normal and moist mucous membranes Eyes General: appearance normal, both eyes and all related structures Conjunctivae: conjunctivae normal Sclerae: sclerae normal Pupils: Equal, round and reactive pupils present EOM: EOMs intact bilaterally Neck Neck: Yes full ROM, Yes no lymphadenopathy and Yes supple Resp Effort & Inspection: normal respiratory effort and able to speak in complete sentences Auscultation: clear to auscultation bilaterally Cardio Rate: regular rate Rhythm: regular rhythm Heart sounds: S1 normal heart sound present and S2 normal heart sound present GI Palpation (GI): Soft to palpation, nontender and no masses Auscultation: normal bowel sounds Back/Spine/Pelvis Back: No back tenderness Skin General skin exam: no rashes or lesions noted Neuro General: patient oriented x3, gait normal, tone normal, moves all extremities, Normal light touch and pain sensation and no focal motor deficits Cranial nerves: Yes CN's II-XII intact bilaterally and Yes Equal, round and reactive pupils present Cognition (Neuro): normal cognition Extrem General: Yes full ROM, Yes no joint enlargement, Yes no clubbing, cyanosis or edema and Yes no calf tenderness Psych Appearance: grossly normal and well kempt Mental Status: mental status grossly normal Speech and movement: Normal speech and movement present Affect: normal affect Attitude: cooperative Thought process: Normal thought process present Thought content: Normal thought content present, suicidality and no homicidality Assessment and Plan Assessment & Plan (1) Anxiety disorder: Code(s): F41.9 - Anxiety disorder, unspecified Qualifiers: Anxiety disorder type: generalized anxiety disorder Qualified Code(s): F41.1 - Generalized anxiety disorder Plan: Prescription sent for hydroxyzine 10 mg once a day as needed for acute anxiety attacks only, do not take together with Zyrtec (2) Allergic rhinitis: Comment: CHRONIC ALLERGIC RHINITIS SECONDARY TO ENVIRONMENTAL AND SEASONAL ALLERGIES. SHE HAS DONE MUCH BETTER SINCE SHE IS ON MONTELUKAST. Code(s): J30.9 - Allergic rhinitis, unspecified Qualifiers: Allergic rhinitis seasonality: seasonal Allergic rhinitis trigger: unspecified Qualified Code(s): J30.2 - Other seasonal allergic rhinitis Plan: Continue on montelukast 10 mg daily, has cetirizine 10 mg once a day as needed (3) Asthma: Comment: LONG-TIME HISTORY OF BRONCHIAL ASTHMA, MOSTLY ALLERGIC, . WELL CONTROLLED WITH CURRENT MED, previously seen by Dr Ingram , now sees Dr Lux Code(s): J45.909 - Unspecified asthma, uncomplicated Qualifiers: Asthma complication type: uncomplicated Asthma persistence: intermittent Asthma severity: mild Qualified Code(s): J45.20 - Mild intermittent asthma, uncomplicated Plan: Continue on montelukast 10 mg daily, has Symbicort 160-4.5 mcg per actuation inhaler, to use 2 inhalations twice a day, gargle mouth after use. Has albuterol inhaler for rescue (4) Paroxysmal SVT (supraventricular tachycardia): Comment: previously Followed by Dr. Ben Hill Code(s): I47.10 - Supraventricular tachycardia, unspecified Plan: Referred to cardiology at [facility] [place] Orders: Referrals Cardiology Referral I47.10 - Supraventricular tachycardia, unspecified Medications: New hydroxyzine HCl 10 mg PO DAILY PRN 30 tabs 1RF Anxiety attacks Refilled montelukast 10 mg PO DAILY 90 tabs 3RF ALLERGIC RHINITIS 90 days Coding Level of Care Code Est Pt Level 4 (94179) Complex EM visit Add On G2211 Diagnoses Generalized anxiety disorder F41.1 Anxiety disorder type: generalized anxiety disorder Seasonal allergic rhinitis, unspecified trigger J30.2 Allergic rhinitis seasonality: seasonal Allergic rhinitis trigger: unspecified Mild intermittent asthma without complication J45.20 Asthma complication type: uncomplicated Asthma persistence: intermittent Asthma severity: mild Paroxysmal SVT (supraventricular tachycardia) I47.10 Additional Codes HANNAH-7 Assessment Billing - HANNAH-7 Assessment Tool: HANNAH-7 Assessment [id number] ([id number])
== END 2024-05-31 11:14 | disposition home or self-care (01) ==
PROVIDERS: PCP Internal Medicine; Visit Provider Internal Medicine
DX: F41.1 Generalized anxiety disorder (principal); J30.2 Other seasonal allergic rhinitis; J45.20 Mild intermittent asthma, uncomplicated; I47.10 Supraventricular tachycardia, unspecified
CPT/HCPCS: 96127; 99214

== ENCOUNTER 2024-08-30 13:23 | Outpatient (AMB) | payer OTHER, SELFPAY ==
[2024-08-30 14:02] VITALS: BP 104/70; PULSE 63; O2SAT 96; BMI 29.3
--- NOTE | 2024-08-30 14:02 | A.OFFPC_ITS ---
Vital Signs 08/30/24 14:02 Height 5 ft 2 in Weight 160 lb BMI 29.3 BP 104/70 Blood Pressure Location Lt brachial Position Sitting Pulse 63 Pulse Source Pulse Oximeter Pulse Oximetry (%) 96 Oxygen Delivery Method Room Air Intake Visit Reasons: Annual PE/Per Dr. Shepherd Intake Note: Pt is here today for her PE: Last mammogram 01/18/23, papsmear 03/01/2022 Allergies acetaminophen [From Tylenol] Allergy (Unknown, Verified 09/05/24 22:22) HIVES gabapentin [GABAPENTIN] Allergy (Unknown, Verified 09/05/24 22:22) HIVES oxycodone Allergy (Verified 09/05/24 22:22) Itching Medication List - Last Reconciled 08/30/24 by Liana Shepherd MD albuterol sulfate 90 mcg/actuation 2 puffs inhalation Q4-6H PRN 30 days budesonide-formoterol 160-4.5 mcg/actuation 2 puffs inhalation Q12H 90 days cetirizine (Zyrtec) 10 mg PO DAILY PRN hydroxyzine HCl 10 mg PO DAILY PRN ibuprofen 600 mg PO Q6H PRN Tobacco use date assessed: 08/30/24 Dental Screening Dental Screen Date: 08/30/24 Did you have a dental visit in the last 12 months?: Yes Did you have a dental problem in the last 6 months where you did not have access to dental care?: No Was dental information given to patient?: Patient has dentist HPI Annual PE/Per Dr. Shepherd HPI Details - The patient is a 49-year-old female pr esenting for her physical exam and for follow-up on chronic conditions including past incidents of DVT, pulmonary embolism, and asthma. - She reported a history of DVT in 2010 following a right ankle fracture and aga in post-back surgery in 2018, and later had pulmonary embolisms bilaterally. Treatment for DVT included one year on Coumadin in 2009 and six months on Eliquis in 2018. - History of paroxysmal supraventricular tachycardia noted, without diagnosis of atrial fibrillation. - Asthma is currently managed with Albut sara and Budesonide. - She experienced severe depression whil e on Montelukast, which resolved after discontinuation. - Back pain persists despite prior disk surgery; non-surgical management includes physical therapy and analgesics. - Right ankle fracture in the past with associated nerve damage noted, causing occasional shooting pains. - Known family history of hyperthyroidis m . -overdue for her breast cancer screening , last mammogram 01/18/23, up-to-date with her papsmear done at [facility] 03/01/2022 with negative findings [facility] Medical History (Updated 08/30/24 @ 14:50 by Liana Shepherd MD) Family history of thyroid disease in mother Paroxysmal SVT (supraventricular tachycardia) History of miscarriage, not currently Endometriosis Hx pulmonary embolism Hx of deep venous thrombosis History of fracture of right ankle Anxiety disorder Allergic rhinitis Asthma Gallstones Pulmonary embolism Surgical History History of appendectomy History of lumbar discectomy History of laparoscopic cholecystectomy (~08/19/23) Previous back surgery Family History Mother No problems noted. Daughter Owen-Danlos syndrome Sister Bronchial asthma Substance use disorder Mental health disorder Brother Drug abuse Suicide Mental health disorder Substance use disorder Father Substance use disorder Maternal Aunt Substance use disorder Maternal Grandfather Substance use disorder Social History Housing: House Alcohol intake: current Alcohol intake frequency: holidays/special occasions only Patient Tobacco Use Status: Former Tobacco user e-Cigarette/Vaping Use: Never Used service: No Current occupational status: employed Cognitive needs: No Hearing needs: No Vision needs: Yes Questionnaire PHQ-9 Over the last 2 weeks, how often have you been bothered by any of the following problems? 1. Little interest or pleasure in doing things: not at all 2. Feeling down, depressed, or hopeless: not at all 3. Trouble falling or staying asleep, or sleeping too much: not at all 4. Feeling tired or having little energy: not at all 5. Poor appetite or overeating: not at all 6. Feeling bad about yourself - or that you are a failure or have let yourself or your family down: not at all 7. Trouble concentrating on things, such as reading the newspaper or watching television: not at all 8. Moving or speaking so slowly that other people could have noticed. Or the opposite - being so fidgety or restless that you have been moving around a lot more than usual: not at all 9. Thoughts that you would be better off or of hurting yourself in some way: not at all Total score: 0 Depression Screening Interpretation: Negative Depression Screening Done: Yes 80310 - PHQ-9 Billing: Yes Source: Developed by Drs. Mickey Thurman, Ramona Zavala, Shaan Chapin and colleagues, with an educational chucky from [employer] Thrive Questionnaire Date Thrive assessed: 08/30/24 I am a: Patient What is your living situation today?: I have a steady place to live Within the past 12 months, did the food you bought not last and you didn't have the money to get more?: Never true Within the past 12 months, did you worry whether your food would run out before you got money to buy more?: Never true Do you have trouble paying for medicines?: No Do you have trouble getting transportation to medical appointments?: No Do you have trouble paying your heating and electricity bill?: No Do you have trouble taking care of your child, family member or friend?: No Do you have trouble with day-to-day activities such as bathing, preparing meals, shopping, managing finances, etc.?: No Are you currently unemployed and looking for a job?: No Are you interested in more education?: No Please select the resources that you would like help with: None Currently or been in a relationship where the following occur: No concerns reported THRIVE Score: 0 AUDIT C Alcohol Use Questionnaire (AUDIT-C) 1. How often do you have a drink containing alcohol?: Monthly or less 2. How many drinks containing alcohol do you have on a typical day when you are drinking?: 1 or 2 3. How often do you have six or more drinks on one occasion?: Never Total Score: 1 HANNAH-7 AMB Questionnaire HANNAH-7 Date HANNAH - 7 assessed: 08/30/24 Feeling nervous, anxious, or on edge: 0 = Not at all Not being able to stop or control worryin = Not at all Worrying too much about different things: 0 = Not at all Trouble relaxin = Not at all Being so restless that it is hard to sit still: 0 = Not at all Becoming easily annoyed or irritable: 0 = Not at all Feeling afraid as if something awful might happen: 0 = Not at all Total HANNAH-7 score (0-4 normal; 5-9 mild; 10-14 moderate; 15-21 severe): 0 Source: Developed by Drs. Mickey Thurman, Ramona Zavala, Shaan Chapin and colleagues, with an educational chucky from [employer]. HANNAH-7 Assessment Billing HANNAH-7 Assessment Tool: HANNAH-7 Assessment 56687 Review of Systems Const Denies body aches, Denies fatigue, Denies fever(s), Denies headache(s) and Denies weakness Eyes Denies change in vision, Denies eye discharge and Denies itchy eyes ENT Denies dizziness, Denies headache(s) and Denies sore throat Card Denies chest pain, Denies lightheadedness, Denies palpitations and Denies dyspnea Resp Denies chest congestion, Denies cough, Denies dyspnea and Denies wheezing GI Denies abdominal pain, Denies change in bowel habits and Denies heartburn Denies hematuria, Denies urinary frequency, Denies dysuria and Denies urinary urgency Musc Reports no additional complaints Skin/Breast Denies breast pain, Denies breast mass, Denies lesions and Denies rash Neuro Denies dizziness, Denies headache(s) and Denies weakness Psych Reports no additional complaints Endo Denies fatigue, Denies polydipsia, Denies polyuria and Denies palpitations Thad/Lymph Denies easy bruising Aller/Immun Denies itchy eyes, Denies seasonal rhinorrhea and Denies wheezing Physical exam (Primary Care) Vital Signs: Last Vital Signs Pulse 63 08/30/24 14:02 BP 104/70 08/30/24 14:02 Pulse Ox 96 08/30/24 14:02 Oxygen Delivery Method Room Air 08/30/24 14:02 BMI result Body Mass Index 29.3 Tobacco/Smoking Status: Tobacco use Status Tobacco use date assessed 08/30/24 08/30/24 14:16 Patient Tobacco Use Status Former Tobacco user 08/30/24 14:03 e-Cigarette/Vaping Use Never Used 08/30/24 14:03 PHQ-9: PHQ-9 Score PHQ-9: Total score 0 08/30/24 14:33 Depression Screening Interpretation: Negative Thrive Assessment: Date of Thrive Assessment Date Thrive assessed 08/30/24 08/30/24 14:16 Currently or been in a relationship where the following occur: No concerns reported Advance Care Planning discussion: Completed/Scanned Date of discussion: 08/30/24 Who was present: Patient Forms completed: Health Care Proxy Time spent: 16-45 minutes Actual minutes spent: 3 Const General: no acute distress and alert Orientation/consciousness: patient oriented x3 HENMT Ears: external ears normal, TM's normal bilaterally and EAC's normal General nose exam: Normal external nose present and No nasal discharge present Mouth: Normal oral and palatal mucosa present, oropharynx normal and moist mucous membranes Eyes General: appearance normal, both eyes and all related structures Conjunctivae: conjunctivae normal Sclerae: sclerae normal Pupils: Equal, round and reactive pupils present EOM: EOMs intact bilaterally Neck Neck: Yes full ROM, Yes no lymphadenopathy and Yes supple Chest Breast/axilla palpation: normal palpation of the breasts Resp Effort & Inspection: normal respiratory effort and able to speak in complete sentences Auscultation: clear to auscultation bilaterally Cardio Rate: regular rate Rhythm: regular rhythm Heart sounds: S1 normal heart sound present and S2 normal heart sound present GI Palpation (GI): Soft to palpation, nontender and no masses Auscultation: normal bowel sounds General: Yes deferred (Goes to [facility]) Back/Spine/Pelvis Back: No back tenderness Skin General skin exam: no rashes or lesions noted Neuro General: patient oriented x3, gait normal, tone normal, moves all extremities, Normal light touch and pain sensation and no focal motor deficits Cranial nerves: Yes CN's II-XII intact bilaterally and Yes Equal, round and reactive pupils present Cognition (Neuro): normal cognition Extrem General: Yes full ROM, Yes no joint enlargement, Yes no clubbing, cyanosis or edema and Yes no calf tenderness Psych Appearance: grossly normal and well kempt Mental Status: mental status grossly normal Speech and movement: Normal speech and movement present Affect: normal affect Attitude: cooperative Thought process: Normal thought process present Thought content: Normal thought content present Coding Level of Care Code Est Pt Prev Care 40-64y(28975) Diagnoses Annual visit for general adult medical examination with abnormal findings Z00.01 Mild intermittent asthma without complication J45.20 Asthma complication type: uncomplicated Asthma persistence: intermittent Asthma severity: mild Seasonal allergic rhinitis, unspecified trigger J30.2 Allergic rhinitis seasonality: seasonal Allergic rhinitis trigger: unspecified Encounter for counseling regarding advance directives Z71.89 Hx pulmonary embolism Z86.711 Additional Codes HANNAH-7 Assessment Billing - HANNAH-7 Assessment Tool: HANNAH-7 Assessment 02662 ([id number]) PHQ-9 - 58431 - PHQ-9 Billing: Yes ([id number]) Vital Signs *Quality* - Advance Care Planning discussion: Completed/Scanned ([id number]) Vital Signs *Quality* - Time spent: 16-45 minutes ([id number]) Assessment & Plan Assessment & Plan (1) Annual visit for general adult medical examination with abnormal findings: Code(s): Z00.01 - Encounter for general adult medical examination with abnormal findings Plan: Will check appropriate labs. Recommended dental visit every 6 months and regular eye exams, at least every 2 years. Take adequate calcium in diet and vitamin-D 3 at 2000 IU per cap once a day, in addition to weight-bearing exercises to help maintain good muscle tone and weight control. Instructed to do self-breast exam, and continue yearly mammogram, referred to GI for colon cancer screening. Declined COVID vaccination booster, or flu vaccine, up-to-date with her pneumococcal vaccination and Tdap (2) Asthma: Comment: LONG-TIME HISTORY OF BRONCHIAL ASTHMA, MOSTLY ALLERGIC, . WELL CONTROLLED WITH CURRENT MED, previously seen by Dr Ingram , now sees Dr Lux Code(s): J45.909 - Unspecified asthma, uncomplicated Category: Medical Qualifiers: Asthma complication type: uncomplicated Asthma persistence: intermittent Asthma severity: mild Qualified Code(s): J45.20 - Mild intermittent asthma, uncomplicated Plan: Currently followed by Pulmonary, continue on budesonide-formoterol and albuterol inhaler has needed (3) Allergic rhinitis: Comment: CHRONIC ALLERGIC RHINITIS SECONDARY TO ENVIRONMENTAL AND SEASONAL ALLERGIES. SHE HAS DONE MUCH BETTER SINCE SHE IS ON MONTELUKAST. Code(s): J30.9 - Allergic rhinitis, unspecified Category: Medical Qualifiers: Allergic rhinitis seasonality: seasonal Allergic rhinitis trigger: unspecified Qualified Code(s): J30.2 - Other seasonal allergic rhinitis Plan: Continue cetirizine as needed for seasonal allergy (4) Encounter for counseling regarding advance directives: Code(s): Z71.89 - Other specified counseling Plan: Initiated the conversation about Advanced Directives. Advanced Directives help patients prepare for current and future decisions about their medical treatment and place of care. Discussed with patient that it is a process where a patients current condition and prognosis are reviewed, their wishes for information regarding their illness are elicited, and likely medical dilemmas are presented and options discussed. Healthcare proxy form completed today. The form can be amended as needed, reviewed yearly and make changes as needed (5) Hx pulmonary embolism: Code(s): Z86.711 - Personal history of pulmonary embolism Category: Medical Plan: Will check for any clotting disorders, ordered a factor 5 Leiden , protein C and S activity, antithrombin 3 activity Orders: Orders Aspartate Amino Transferase 09/04/24 J30.2 - Other seasonal allergic rhinitis, J45.20 - Mild intermittent asthma, uncomplicated, Z00.01 - Encounter for general adult medical examination with abnormal findings, Z71.89 - Other specified counseling, Z83.49 - Family history of other endocrine, nutritional and metabolic diseases Factor V Leiden 09/04/24 Z86.711 - Personal history of pulmonary embolism, Z86.718 - Personal history of other venous thrombosis and embolism Protein S Activity reflex Ag 09/04/24 Z86.711 - Personal history of pulmonary embolism Anti-Thrombin III Activity 09/04/24 Z86.711 - Personal history of pulmonary embolism, Z86.718 - Personal history of other venous thrombosis and embolism Prothrombin [id number] 09/04/24 Z86.711 - Personal history of pulmonary embolism, Z86.718 - Personal history of other venous thrombosis and embolism Alanine Aminotransferase 09/04/24 J30.2 - Other seasonal allergic rhinitis, J45.20 - Mild intermittent asthma, uncomplicated, Z00.01 - Encounter for general adult medical examination with abnormal findings, Z71.89 - Other specified counseling, Z83.49 - Family history of other endocrine, nutritional and metabolic diseases Basic Metabolic Panel Fasting 09/04/24 J30.2 - Other seasonal allergic rhinitis, J45.20 - Mild intermittent asthma, uncomplicated, Z00.01 - Encounter for general adult medical examination with abnormal findings, Z71.89 - Other specified counseling, Z83.49 - Family history of other endocrine, nutritional and metabolic diseases Lipid Panel 09/04/24 J30.2 - Other seasonal allergic rhinitis, J45.20 - Mild intermittent asthma, uncomplicated, Z00.01 - Encounter for general adult medical examination with abnormal findings, Z71.89 - Other specified counseling, Z83.49 - Family history of other endocrine, nutritional and metabolic diseases Vitamin D 25-OH Total 09/04/24 J30.2 - Other seasonal allergic rhinitis, J45.20 - Mild intermittent asthma, uncomplicated, Z00.01 - Encounter for general adult medical examination with abnormal findings, Z71.89 - Other specified counseling, Z83.49 - Family history of other endocrine, nutritional and metabolic diseases TSH reflex Free T4 09/04/24 J30.2 - Other seasonal allergic rhinitis, J45.20 - Mild intermittent asthma, uncomplicated, Z00.01 - Encounter for general adult medical examination with abnormal findings, Z71.89 - Other specified counseling, Z83.49 - Family history of other endocrine, nutritional and metabolic diseases Protein S Activity reflex Ag 09/04/24 Z86.711 - Personal history of pulmonary embolism, Z86.718 - Personal history of other venous thrombosis and embolism Protein C Activity Reflex Ag 09/04/24 Z86.711 - Personal history of pulmonary embolism, Z86.718 - Personal history of other venous thrombosis and embolism Referrals Gastroenterology Referral Z12.11 - Encounter for screening for malignant neoplasm of colon
== END 2024-08-30 14:50 | disposition home or self-care (01) ==
PROVIDERS: PCP Internal Medicine; Visit Provider Internal Medicine
DX: Z00.01 Encounter for general adult medical examination with abnormal findings (principal); J45.20 Mild intermittent asthma, uncomplicated; J30.2 Other seasonal allergic rhinitis; Z71.89 Other specified counseling; Z86.711 Personal history of pulmonary embolism

== ENCOUNTER → 2024-08-30 13:23 | Outpatient (BNVA) | payer OTHER, SELFPAY | PROVIDERS: PCP Internal Medicine; Visit Provider Internal Medicine | DX: Z00.01 Encounter for general adult medical examination with abnormal findings (principal); J45.20 Mild intermittent asthma, uncomplicated; J30.2 Other seasonal allergic rhinitis; Z86.711 Personal history of pulmonary embolism; Z71.89 Other specified counseling | CPT/HCPCS: 96127 ==

== ENCOUNTER 2024-09-04 09:25 | Outpatient (REF) | payer OTHER, SELFPAY ==
[2024-09-04 11:40] LABS: Alanine Aminotransferase 29 U/L (0-31); Anion Gap 10 (12-20); Aspartate Amino Transferase 22 U/L (5-31); Blood Urea Nitrogen 12 mg/dL (9-16); Calcium 9.2 mg/dL (8.4-10.2); Carbon Dioxide 27 mmol/L (22-29); Chloride 107 mmol/L (96-108); Cholesterol 196 mg/dL (<200); Estimated Glomerular Filt Rate > 60; Glucose Fasting 96 mg/dL (60-99); HDL Cholesterol 59 mg/dL (>40); LDL Cholesterol Calculated 112 mg/dL (<100); Potassium 4.1 mmol/L (3.3-5.1); Sodium 140 mmol/L (135-145); Triglycerides 126 mg/dL (<150)
[2024-09-04 11:46] LABS: TSH reflex Free T4 0.84 uIU/mL (0.32-4.0); Vitamin D 25-OH Total 31.6 ng/mL (>30)
[2024-09-09 21:44] LABS: Anti-Thrombin III Activity 105 % normal (80-135); Protein C Activity 196 % normal (70-180); Protein S Activity rflx Tot&Fr 82 % normal (60-140)
[2024-09-10 16:04] LABS: Factor V Leiden NEGATIVE
[2024-09-11 11:18] LABS: Prothrombin 20210A NEGATIVE
== END 2024-09-04 09:26 | disposition home or self-care (01) ==
LOC: HO.LAB 09:25
PROVIDERS: PCP Internal Medicine; Visit Provider Internal Medicine
DX: J45.20 Mild intermittent asthma, uncomplicated (principal); J30.2 Other seasonal allergic rhinitis; Z00.01 Encounter for general adult medical examination with abnormal findings; Z71.89 Other specified counseling; Z83.49 Family history of other endocrine, nutritional and metabolic diseases; Z86.711 Personal history of pulmonary embolism; Z86.718 Personal history of other venous thrombosis and embolism
CPT/HCPCS: 36415; 80048; 80061; 81240; 81241; 82306; 84443; 84450; 84460; 85300; 85302; 85303; 85306

== ENCOUNTER 2024-09-16 08:53 | Outpatient (AMB) | payer OTHER, SELFPAY ==
[2024-09-16 08:59] VITALS: BP 98/66; PULSE 63; BMI 29.0
--- NOTE | 2024-09-16 08:59 | MHC.OFFVIS ---
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 Allergies acetaminophen [From Tylenol] Allergy (Unknown, Verified 09/05/24 22:22) HIVES gabapentin [GABAPENTIN] Allergy (Unknown, Verified 09/05/24 22:22) HIVES oxycodone Allergy (Verified 09/05/24 22:22) Itching Medication List - Last Reconciled 09/16/24 by Jordan Riley MD albuterol sulfate 90 mcg/actuation 2 puffs inhalation Q4-6H PRN 30 days budesonide-formoterol 160-4.5 mcg/actuation 2 puffs inhalation Q12H 90 days cetirizine (Zyrtec) 10 mg PO DAILY PRN hydroxyzine HCl 10 mg PO DAILY PRN ibuprofen 600 mg PO Q6H PRN metoprolol tartrate 25 mg PO ONCE PRN HPI Comments Details: Thank you for referring Nola in cardiology consultation today for management of cardiac arrhythmias. She is a pleasant 49-year-old female with prior history of pulmonary embolism currently not on any oral anticoagulation therapy with prior history of cardiac arrhythmias for many years. She says symptoms started in 2000 and she has been having infrequent symptoms of palpitations for many many years. 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 Patient says however over the last year symptoms have become increasingly frequent and more symptomatic. She denies any clear triggers although she says sometimes when she is dehydrated under stressful situation she would get the symptoms of palpitation had but at other times his symptoms were just happen without much triggers. She would feel symptoms of rapid heart rate, was never diagnose SVT by EKG. However she has invested in smart phone based EKG anna. on September 12 after dry back from [place] which has a very long drive back and lack of sleep she had episode during the day which lasted for hour and half. This is a longest episode that lasted. 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 Patient says she tried vagal maneuvers but did not help. She eventually decided take metoprolol 25 mg which was prescribed by the other cardiology group after waiting an hour. After half an hour of taking metoprolol the symptoms subsided. She has had brief episodes since then. Heart rate went up to 170 and sometimes up to 200 beats per minute. She has no associated symptoms of lightheadedness or syncope. Denies any significant chest pain or shortness of breath. However she is bothered by more frequent symptoms. [facility] Medical History Family history of thyroid disease in mother Paroxysmal SVT (supraventricular tachycardia) History of miscarriage, not currently Endometriosis Hx pulmonary embolism Hx of deep venous thrombosis History of fracture of right ankle Anxiety disorder Allergic rhinitis Asthma Gallstones Pulmonary embolism Surgical History History of appendectomy History of lumbar discectomy History of laparoscopic cholecystectomy (~08/19/23) Previous back surgery Family History Mother No problems noted. Daughter Owen-Danlos syndrome Sister Bronchial asthma Substance use disorder Mental health disorder Brother Drug abuse Suicide Mental health disorder Substance use disorder Father Substance use disorder Maternal Aunt Substance use disorder Maternal Grandfather Substance use disorder Social History Housing: House Alcohol intake: current Alcohol intake frequency: holidays/special occasions only Patient Tobacco Use Status: Former Tobacco user e-Cigarette/Vaping Use: Never Used service: No Current occupational status: employed Cognitive needs: No Hearing needs: No Vision needs: Yes Review of Systems Const Denies chills, Denies daytime sleepiness, Denies fatigue, Denies fever(s), Denies frequent falls, Denies poor appetite, Denies snoring, Denies stops breathing during sleep, Denies weakness, Denies weight gain and Denies weight loss Eyes Denies loss of vision ENT Denies dizziness and Denies hearing loss Card Denies chest pain, Denies claudication, Denies leg edema, Denies lightheadedness, Reports palpitations, Denies dyspnea, Denies dyspnea on exertion and Denies orthopnea Resp Denies cough, Denies excessive phlegm production, Denies dyspnea, Denies dyspnea on exertion, Denies snoring and Denies wheezing GI Denies abdominal pain, Denies hematochezia, Denies change in bowel habits, Denies nausea and Denies vomiting Denies urinary frequency and Denies dysuria Musc Denies arthralgias, Denies muscle weakness, Denies numbness and Denies other (frequent falls) Skin/Breast Denies nail changes and Denies rash Neuro Denies Abnormal speech present, Denies dizziness, Denies frequent falls, Denies loss of vision, Denies memory loss, Denies numbness and Denies weakness Psych Denies depression and Denies memory loss Endo Denies fatigue and Reports palpitations Thad/Lymph Reports easy bruising and Reports other (anemia) Aller/Immun Denies wheezing Physical Exam Vital Signs: Last Vital Signs Pulse 63 09/16/24 08:59 BP 98/66 09/16/24 08:59 BMI result Body Mass Index 29.0 Const General: cooperative, comfortable, no acute distress, alert, awake and Physically active Nutritional Appearance: overweight Orientation/consciousness: patient oriented x3 Limitations: no limitations HEENT Head: Yes normocephalic and Yes atraumatic Neck Neck: Yes trachea midline, Yes supple and Yes no JVD Resp Effort & Inspection: normal respiratory effort Auscultation: clear to auscultation bilaterally Cardio Jugular venous distension: no JVD Palpation: normal PMI Rate: regular rate Rhythm: regular rhythm Heart sounds: S1 normal heart sound present, S2 normal heart sound present, no click, no gallops, no murmurs and no rubs GI Auscultation: normal bowel sounds Skin General skin exam: no rashes or lesions noted Neuro General: patient oriented x3 and no focal motor deficits Speech: No Abnormal speech present Extrem General: Yes no clubbing, cyanosis or edema Psych Appearance: grossly normal Office Procedures EKG Details: EKG shows normal sinus rhythm with low-voltage QRS with incomplete right bundle-branch block. [id number], Complete Assessment & Plan Assessment & Plan (1) Paroxysmal SVT (supraventricular tachycardia): Comment: previously Followed by Dr. Ben Hill Code(s): I47.10 - Supraventricular tachycardia, unspecified Category: Medical Plan: Patient with longstanding history of palpitations, current episode has been very prolonged and the 1st episode that lasted this long that she had to take p.o. metoprolol which she uses as p.r.n. basis. She was tried vagal maneuvers with partial success. Patient has limitations using medications due to low blood pressure and nocturnal sinus bradycardia. Therefore detention medical therapy would cause more side effects. 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 We discussed about obtaining a 12 lead EKG she was next episode. We discussed about various vagal maneuvers. Also discussed about using metoprolol sooner rather than waiting an hour onto the episode. We discussed about ablation. 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 This was discussed with her. She is looking for more definitive therapy and will refer her to electrophysiology at [facility] for further evaluation management. Meanwhile we discussed about avoiding triggers such as dehydration, excessive stress and stimulants products such as caffeine. She understands. Will follow up in 4 months time. Thank you for allowing me to partake in her care Coding Level of Care Code New Pt Level 4 (54057) Complex EM visit Add On G2211 Diagnoses Paroxysmal SVT (supraventricular tachycardia) I47.10 CPT Codes EKG - CPT: 49427-[id number], Complete ([id number])
== END 2024-09-16 09:35 | disposition home or self-care (01) ==
PROVIDERS: PCP Internal Medicine; Visit Provider Internal Medicine Cardiovascular Disease
DX: I47.10 Supraventricular tachycardia, unspecified (principal)
CPT/HCPCS: 93010; 99204

== ENCOUNTER → 2024-09-16 08:53 | Outpatient (BNVA) | payer OTHER, SELFPAY | PROVIDERS: PCP Internal Medicine; Visit Provider Internal Medicine Cardiovascular Disease | DX: I45.19 Other right bundle-branch block (principal); I47.10 Supraventricular tachycardia, unspecified | CPT/HCPCS: 93005 ==

== ENCOUNTER 2024-11-23 11:50 | Outpatient (AMB) | payer OTHER, SELFPAY ==
[2024-11-23 12:46] VITALS: BP 140/90; PULSE 66; TEMP 36.3; O2SAT 99
--- NOTE | 2024-11-23 12:46 | MHC.OFFWIV ---
Intake Vital Signs 11/23/24 12:46 Weight 155 lb BP 140/90 H Blood Pressure Location Lt brachial Position Sitting Pulse 66 Pulse Source Pulse Oximeter Temp 97.4 F Temp Source Oral Pulse Oximetry (%) 99 Oxygen Delivery Method Room Air Intake Visit Reasons: EP-?uti, rt lower back pain Intake Note: Patient here for lower right back pain, burning on urination, slight bladder pressure which started about 2 days ago. Patient Tobacco Use Status: Former Tobacco user Allergies acetaminophen [From Tylenol] Allergy (Unknown, Verified 11/23/24 12:50) HIVES gabapentin [GABAPENTIN] Allergy (Unknown, Verified 11/23/24 12:50) HIVES oxycodone Allergy (Verified 11/23/24 12:50) Itching Do you need a note to return to daycare/school/sports/work: No HPI HPI Comments History of Present Illness Details History of Present Illness - The patient is a 49-year-old female presenting with urinary tract symptoms x 3 days. - Symptoms initiated following an extended period of urine retention, leading to the development of a suspected urinary tract infection. - The patient describes dysuria, increased frequency, urgency, and lower abdominal tenderness, accompanied by back pain. - There is no history of fever, but notable chills and discomfort have been reported, with the pain radiating to the lower back and abdomen. - Surgical history relevant to this condition includes recent cholecystectomy and prior appendectomy. - The patient experiences minimal relief from naproxen and is allergic to acetaminophen. - No urinary hematuria has been observed Physical Exam General: Cooperative, healthy appearing, comfortable, no acute distress and well developed Orientation: Patient oriented x3 Limitations: No limitations Head: Normal to inspection Ears: Hearing grossly normal bilaterally Nose: Normal external nose present Face and sinus: Normal facial exam Eyes: Appearance normal, both eyes and all related structures Neck: Normal visual inspection and Yes full ROM Respiratory: Normal respiratory effort and able to speak in complete sentences. : negative CVA bilaterally Skin: No rashes or lesions noted Neuro: Patient oriented x3 Extremities: Normal to inspection [facility] Medical History Family history of thyroid disease in mother Paroxysmal SVT (supraventricular tachycardia) History of miscarriage, not currently Endometriosis Hx pulmonary embolism Hx of deep venous thrombosis History of fracture of right ankle Anxiety disorder Allergic rhinitis Asthma Gallstones Pulmonary embolism Surgical History History of appendectomy History of lumbar discectomy History of laparoscopic cholecystectomy (~08/19/23) Previous back surgery Family History Mother No problems noted. Daughter Owen-Danlos syndrome Sister Bronchial asthma Substance use disorder Mental health disorder Brother Drug abuse Suicide Mental health disorder Substance use disorder Father Substance use disorder Maternal Aunt Substance use disorder Maternal Grandfather Substance use disorder Social History Housing: House Alcohol intake: current Alcohol intake frequency: holidays/special occasions only Patient Tobacco Use Status: Former Tobacco user e-Cigarette/Vaping Use: Never Used service: No Current occupational status: employed Cognitive needs: No Hearing needs: No Vision needs: Yes Review of Systems Const All systems reviewed & are unremarkable except as noted in HPI and below Physical Exam Vital Signs: Last Vital Signs Temp 97.4 F 11/23/24 12:46 Pulse 66 11/23/24 12:46 BP 140/90 H 11/23/24 12:46 Pulse Ox 99 11/23/24 12:46 Oxygen Delivery Method Room Air 11/23/24 12:46 Assessment & Plan Assessment & Plan (1) UTI (urinary tract infection): Code(s): N39.0 - Urinary tract infection, site not specified Qualifiers: Urinary tract infection type: acute cystitis Hematuria presence: without hematuria Qualified Code(s): N30.00 - Acute cystitis without hematuria Plan: UA + nitrites, 2+ leuks, 1+protein, 3+ blood. The diagnosis is an acute urinary tract infection with a possible underlying kidney stone. Cefuroxime is prescribed for antimicrobial therapy, with the treatment duration adaptable to symptomatic improvement. Given the patient's allergic reaction history, naproxen is suggested for analgesia, albeit its limited efficacy thus far. Dewitt advice involves monitoring for signs that may necessitate emergency action, including intractable pain or hematuria, given the potential complication of nephrolithiasis. Further refinement of the treatment plan may be warranted depending on progression and response over the coming days. Patient was informed and verbally consented to the use of an ambient scribe for clinic note documentation during this visit. Medications: New cefuroxime axetil 500 mg PO Q12H 14 tabs 0RF Coding Level of Care Code Est Pt Level 3 (18846) Diagnoses Acute cystitis without hematuria N30.00 Urinary tract infection type: acute cystitis Hematuria presence: without hematuria
--- OUTSIDE RECORDS SUMMARY | 2024-11-23 15:00 | XMS_ITS | Continuity of Care Document ---
Author Organization [facility] Address [address] [place] [address]- Care Team Providers Care External Relations Manager Name Role Phone Marilyn Ballesteros MD Primary Care Physician Unav ailable Encounter [facility] Date(s): 10/02/24 - 11/01/24 [facility] [address] [place] [address]- Attending Physician: Jere He Admitting Physician: Jere He Referring Physician: Jere He Encounter Type: Triage Allergies, Adverse Reactions, Alerts Substance Criticality Severity Reaction Reaction Severity Status Tylenol Active Medications predniSONE 10 mg oral tablet See Instructions, 5 tablets x 3 days, 4 tabs x 2 days, 3 tabs x 2 days, 2 tabs x 2 days, 1 tab x 2 days. with food, # 35 tablet, 0 Refills, Maintenance, 10/02/24 3:22:00 PM EST, [facility], Partial fill upon patient request if the prescription is for a schedule II opioid drug. Start Date: 10/02/24 Status: Ordered Quantity: 35.0 Unit: tablet Repeat number: 1 Indication: Urticaria, unspecified ProAir HFA 2 puffs, Inhalation, 4 times a day, 0 Refills, Maintenance, 03/21/14 12:47:11 PM EDT Start Date: 03/21/14 Status: Ordered Repeat number: 1 Problem List Condition Confirmation Course Effective Dates Status Health St atus Informant Pulmonary emboli Confirmed Active Seasonal allergies Confirmed Active Patient Care team information Personnel Name: Marilyn Ballesteros MD [address]: [address] [place] [address] [place] [address]- Insurance Providers Guarantor name: [employer] Health Plan Information #: 1 Payer: [employer] Member Number: NA Policy Number: NA Group Number: [id number]
--- OUTSIDE RECORDS SUMMARY | 2024-11-23 15:00 | XMS_ITS | Clinical Summary ---
Author Organization [facility] Address [address] [place] [address] Care Team Providers Care Party Host Name Role Phone Liana Shepherd MD Primary Care Provider [phone] Encounters Date Type Department Care Team Description 10/06/2024 Telephone [facility] Cardiology [facility] [address] [place] [address] Liana Shepherd MD Medical Records from Last 3 Months Surgical History Surgery Date Site/Laterality Comments APPENDECTOMY PROCEDURE: HISTORICAL APPENDECTOMY; COMMENT: [facility] age 10 OTHER SURGICAL HISTORY 11/03/2018 PROCEDURE: DISKECTOMY LUMBAR SINGLE SP; COMMENT: L5-S1, Dr. marck Malloy Medical History Medical History Date Comments RAD (reactive airway disease ) with wheezing, moderate persistent, uncomplicated DX:RAD (reactive airway dise ase) with wheezing, moderate persistent, uncomplicated Vitamin D deficiency 06/24/2023 DX:Vitamin D deficiency Gallstones 07/09/2023 DX:Gallstones Family History Medical History Relation Name Comments Depression Brother No Known Problems Daughter No Known Problems Father no contact , alcohol use Schizophrenia Half-Sister mat no contact Stomach cancer Maternal Grandfather with mets No Known Problems Maternal Grandmother ?h eart problem Thyroid disease Mother No Known Problems Paternal Grandfather No Known Problems Paternal Grandmother gi ving No Known Problems Son Breast cancer Neg Hx Relation Name Status Comments Brother Daughter Alive Father Alive Half-Sister mat Alive Maternal Grandfather Maternal Grandmother Mother Alive Paternal Grandfather Paternal Grandmother Son Alive Social History Tobacco Use Types Packs/Day Years Used Date Smoking Tobacco: Former Cigarettes Q uit: 09/22/2014 Smokeless Tobacco: Never Alcohol Use Standard Drinks/Week Comments Yes 0 (1 standard drink = 0.6 oz pur e alcohol) Comments Unknown Sex and Gender Information Value Date Recorded Sex Assigned at Not on file Legal Sex Female 1:03 PM EST Gender Identity Not on file Sexual Orientation Not on file Obstetrics History Last Filed Vital Signs Vital Sign Reading Time Taken Comments Blood Pressure 130/88 02/20/2024 9:13 AM EDT Sit ting L Arm Pulse 68 02/20/2024 9:13 AM EDT Temperature - - Respiratory Rate - - Oxygen Saturation - - Inhaled Oxygen Concentration - - Weight 71.2 kg (157 lb) 02/20/2024 9:13 AM EDT Height 157.5 cm (5' 2 ) 02/20/2024 9:13 AM EDT Body Mass Index 28.72 02/20/2024 9:13 AM EDT Plan of Treatment Health Maintenance Due Date Last Done Comments Hepatitis A Vaccines (1 of 2 - Risk 2-dose series) 1992 Hepatitis B Vaccines (1 of 3 - 19+ 3-dose series) 1992 Cervical Cancer Screening: P ap Smear 1994 Pneumococcal Vaccine: 50+ Years (2 of 2 - PPSV23) 07/08/2017 05/13/2017 Pneumococcal Vaccine: Pediatrics (0 to 5 Years) and At-Risk Patients (6 to 64 Years) (2 of 2 - PPSV23) 07/08/2017 05/13/2017 Cholesterol Screening (Lipid Panel) 08/31/2022 Colorectal Cancer Screening: Colonoscopy 08/31/2022 Depression Screening 08/31/2022 HIV Screening 08/31/2022 Hepatitis C Screening 08/31/2022 Social Influencers of Health Screening 08/31/2022 Hypertension/CHF/CAD Annual BMP Blood Test 09/07/2022 Breast Cancer Screening 04/14/2023 04/14/20 21, 05/18/2018, 05/13/2017 Zoster Vaccines (1 of 2) 2023 COVID-19 Vaccine (2023-2 5 season) 2024 02/06/2021, 01/16/2021 Influenza Vaccine (#1) 2024 2, 06/06/2020, 06/07/2019 DTaP,Tdap,and Td Vaccines (2 - Td or Tdap) 02/28/2027 02/28/2017 HIB Vaccines Aged Out No longer eligi ble based on patient's age to complete this topic HPV Vaccines Aged Out No longer eligi ble based on patient's age to complete this topic IPV Vaccines Aged Out No longer eligi ble based on patient's age to complete this topic MMR Vaccines Aged Out No longer eligi ble based on patient's age to complete this topic Meningococcal ACWY Vaccine Aged Out N o longer eligible based on patient's age to complete this topic Meningococcal B Vacine Aged Out No lo nger eligible based on patient's age to complete this topic RSV Immunization Patients Under 20 months Aged Out No longer eligible b ased on patient's age to complete this topic Varicella Vaccines Aged Out No longer eligible based on patient's age to complete this topic Procedures Procedure Name Priority Date/Time Associated Diagnosis Comments SCREENING MAMMOGRAPHY BI 2-VIEW BREAST INC CAD Routine 04/14/2021 9:43 AM EDT Encounter for general adult medical examination without abnormal findings from Last 3 Months or Most Recently Relevant to Health Maintenance Results * SCREENING MAMMOGRAPHY BI 2-VIEW BREAST INC CAD (04/14/2021 9:43 AM EDT) Anatomical Region Laterality Modality Radiographic Marissa ging 06/16/2020 2:05 PM EDT Narrative 04/16/2021 12:04 PM EDT This is a summary report. The complete report is available in the patient's medical record. If you cannot access the medical record, please contact the sending organization for a detailed fax or copy. Exam: Screening mammogram Findings: Digital bilateral full-field screening mammography is performed with tomosynthesis and interpreted with the aid of computer-aided detection. ??Comparison is made with 05/18/2018 and 05/13/2017. Breast parenchyma is composed of scattered fibroglandular densities. ??No new suspicious mass, architectural distortion, or suspicious calcifications. Impression: No mammographic evidence of malignancy. BI-RADS 1 - negative Procedure Note Wen Hill MD - 09/10/2022 This is a summary report. The complete report is available in thepatient's medical record. If you cannot access the medical record, pleasecontact the sending organization for a detailed fax or copy. Exam: Screening mammogram Findings: Digital bilateral full-field screening mammography is performedwith tomosynthesis and interpreted with the aid of computer-aideddetection. Comparison is made with 05/18/2018 and 05/13/2017. Breast parenchyma is composed of scattered fibroglandular densities. Nonew suspicious mass, architectural distortion, or suspiciouscalcifications. Impression: No mammographic evidence of malignancy. BI-RADS 1 - negative us Daly Demetri PA IMG XR PROCEDURES Final Result from Last 3 Months or Most Recently Relevant to Health Maintenance Care Teams Party Host Relationship Specialty Start Date End Date Liana Shepherd MD [address] [place] [address] PCP - General 02/20/24
== END 2024-11-23 13:20 | disposition home or self-care (01) ==
PROVIDERS: PCP Internal Medicine; Visit Provider Physician Assistant
DX: Z13.9 Encounter for screening, unspecified (principal); N30.00 Acute cystitis without hematuria

== ENCOUNTER → 2024-11-23 11:50 | Outpatient (BNVA) | payer OTHER, SELFPAY | PROVIDERS: PCP Internal Medicine; Visit Provider Physician Assistant | DX: N30.00 Acute cystitis without hematuria (principal) | CPT/HCPCS: 81003 ==

== ENCOUNTER 2025-01-17 09:44 | Outpatient (AMB) | payer OTHER, SELFPAY ==
[2025-01-17 09:49] VITALS: BP 122/78; PULSE 60; BMI 30.6
--- NOTE | 2025-01-17 09:49 | MHC.OFFVIS ---
Vital Signs 01/17/25 09:49 Height 5 ft 2 in Weight 167 lb 8.821 oz BMI 30.6 BP 122/78 Blood Pressure Location Lt brachial Position Sitting Pulse 60 Intake Visit Reasons: 4 mth fu after ablation Intake Note: 4 month follow-up saw EP at [facility] they are thinking of doing ablation in February c/o palpations at times Shrinker Required: No Allergies acetaminophen [From Tylenol] Allergy (Unknown, Verified 11/23/24 12:50) HIVES gabapentin [GABAPENTIN] Allergy (Unknown, Verified 11/23/24 12:50) HIVES oxycodone Allergy (Verified 11/23/24 12:50) Itching Medication List - Last Reconciled 01/17/25 by Jordan Riley MD albuterol sulfate 90 mcg/actuation 2 puffs inhalation Q4-6H PRN 30 days budesonide-formoterol 160-4.5 mcg/actuation 2 puffs inhalation Q12H 90 days cetirizine (Zyrtec) 10 mg PO DAILY PRN hydroxyzine HCl 10 mg PO DAILY PRN ibuprofen 600 mg PO Q6H PRN metoprolol tartrate 25 mg PO ONCE PRN HPI Comments Details: Nola comes for follow-up. Continues to have episodes of SVT intermittently. She was very bothered by the symptoms. She tries vagal maneuvers but mostly without success and then takes metoprolol which she was taken 3 times since I saw her. Said that this helps an half an hour. Patient has seen electrophysiology and is planned to undergo ablation in February. Comes for follow-up. [facility] Medical History Family history of thyroid disease in mother Paroxysmal SVT (supraventricular tachycardia) History of miscarriage, not currently Endometriosis Hx pulmonary embolism Hx of deep venous thrombosis History of fracture of right ankle Anxiety disorder Allergic rhinitis Asthma Gallstones Pulmonary embolism Surgical History History of appendectomy History of lumbar discectomy History of laparoscopic cholecystectomy (~08/19/23) Previous back surgery Family History Mother No problems noted. Daughter Owen-Danlos syndrome Sister Bronchial asthma Substance use disorder Mental health disorder Brother Drug abuse Suicide Mental health disorder Substance use disorder Father Substance use disorder Maternal Aunt Substance use disorder Maternal Grandfather Substance use disorder Social History Housing: House Alcohol intake: current Alcohol intake frequency: holidays/special occasions only Patient Tobacco Use Status: Former Tobacco user e-Cigarette/Vaping Use: Never Used service: No Current occupational status: employed Cognitive needs: No Hearing needs: No Vision needs: Yes Review of Systems Const Denies chills, Denies fatigue, Denies fever(s), Denies frequent falls, Denies weakness, Denies weight gain and Denies weight loss ENT Denies dizziness Card Denies chest pain, Denies leg edema, Denies lightheadedness, Denies palpitations, Denies dyspnea, Denies dyspnea on exertion, Denies orthopnea and Denies other (loss of consciousness) Resp Denies cough, Denies dyspnea and Denies dyspnea on exertion GI Denies hematochezia and Denies change in stool character Musc Denies abnormal gait, Denies muscle weakness, Denies numbness, Denies radiating pain into limb and Denies tingling Neuro Denies Abnormal speech present, Denies abnormal gait, Denies dizziness, Denies frequent falls, Denies numbness, Denies tingling and Denies weakness Endo Denies fatigue and Denies palpitations Physical Exam Vital Signs: Last Vital Signs Pulse 60 01/17/25 09:49 BP 122/78 01/17/25 09:49 BMI result Body Mass Index 30.6 Const General: cooperative, comfortable, no acute distress, alert, awake and Physically active Nutritional Appearance: overweight Orientation/consciousness: patient oriented x3 Limitations: no limitations HEENT Head: Yes normocephalic and Yes atraumatic Neck Neck: Yes trachea midline, Yes supple and Yes no JVD Resp Effort & Inspection: normal respiratory effort Auscultation: clear to auscultation bilaterally Cardio Jugular venous distension: no JVD Palpation: normal PMI Rate: regular rate Rhythm: regular rhythm Heart sounds: S1 normal heart sound present, S2 normal heart sound present, no click, no gallops, no murmurs and no rubs GI Auscultation: normal bowel sounds Skin General skin exam: no rashes or lesions noted Neuro General: patient oriented x3 and no focal motor deficits Speech: No Abnormal speech present Extrem General: Yes no clubbing, cyanosis or edema Psych Appearance: grossly normal Assessment & Plan Assessment & Plan (1) Paroxysmal SVT (supraventricular tachycardia): Comment: previously Followed by Dr. 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 She was scheduled for electrophysiology and ablation in February. We discussed the pathophysiology of SVT 1 more time. Dual AV livia physiology was discussed. Mechanism of medications as well as ablation as therapy was discussed with her. 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 Her. Risks and benefits and alternatives were discussed. She understands. For now continue with vagal maneuvers. Avoidance of stimulants was discussed. P.r.n. metoprolol use was discussed. Will follow up in the clinic in 6 months time, sooner p.r.n.. Thank you for allowing me to partake in his care Coding Level of Care Code Est Pt Level 4 (23218) Complex EM visit Add On G2211 Diagnoses Paroxysmal SVT (supraventricular tachycardia) I47.10
--- OUTSIDE RECORDS SUMMARY | 2025-01-17 10:59 | XMS_ITS | Clinical Summary ---
Author Organization [facility] Address [address] [place] [address] Care Team Providers Care Hopper Feeder Name Role Phone Liana Shepherd MD Primary Care Provider [phone] Surgical History Surgery Date Site/Laterality Comments APPENDECTOMY PROCEDURE: HISTORICAL APPENDECTOMY; COMMENT: aroudn age 10 OTHER SURGICAL HISTORY 11/03/2018 PROCEDURE: [...] Vaccines (1 of 2) 2023 COVID-19 Vaccine (3 - 2023-2 5 season) 2024 02/06/2021, 01/16/2021 Influenza Vaccine (Season Ended) 2025 07/01/2022, 06/06/2020, 06/07/2019 DTaP,Tdap,and Td Vaccines (2 - [...] age to complete this topic Meningococcal B Vaccine Aged Out No l onger eligible based on patient's age to complete [...] BI-RADS 1 - negative us Daly Demetri MAHMOOD IMG XR PROCEDURES Final Result from Last 3 Months or Most Recently Relevant to Health Maintenance Care Teams Hopper Feeder Relationship Specialty Start Date End Date Liana Shepherd MD [address] [place] [address] PCP - General 02/20/24
== END 2025-01-17 10:13 | disposition home or self-care (01) ==
LOC: HO.HCS 09:45
PROVIDERS: PCP Internal Medicine; Visit Provider Internal Medicine Cardiovascular Disease
DX: I47.10 Supraventricular tachycardia, unspecified (principal)
CPT/HCPCS: 99214

== ENCOUNTER → 2025-01-17 09:44 | Outpatient (BNVA) | payer OTHER, SELFPAY | PROVIDERS: PCP Internal Medicine; Visit Provider Internal Medicine Cardiovascular Disease ==

== ENCOUNTER 2025-02-02 14:27 | Outpatient (AMB) | payer OTHER, SELFPAY ==
[2025-02-02 14:29] VITALS: BP 110/72; PULSE 76; TEMP 36.5; O2SAT 96; BMI 30.7
--- NOTE | 2025-02-02 14:29 | MHC.OFFWIV ---
Intake Vital Signs 02/02/25 14:29 Height 5 ft 2 in Weight 168 lb BMI 30.7 BP 110/72 Blood Pressure Location Lt brachial Position Sitting Pulse 76 Pulse Source Pulse Oximeter Temp 97.7 F Temp Source Oral Pulse Oximetry (%) 96 Oxygen Delivery Method Room Air Intake Visit Reasons: EP coughing, congestion Patient Tobacco Use Status: Former Tobacco user Allergies acetaminophen [From Tylenol] Allergy (Unknown, Verified 02/02/25 14:29) HIVES gabapentin [GABAPENTIN] Allergy (Unknown, Verified 02/02/25 14:29) HIVES oxycodone Allergy (Verified 02/02/25 14:29) Itching Do you need a note to return to daycare/school/sports/work: No HPI HPI Comments History of Present Illness Details She presents to office with cough symptoms > 1 week She said it started with cough, congestion, nasal discharge and mucus with cough Has been progressing to sinus headache She has tried OTC medicine like robitussin without relief She is most bothere by chest She said R side lung pain with coughing No fever but + chills Significant other sick at home Patient states some SOB and has been using inahler prn Ran out of nebulizer solution but said not that bad PFSH Medical History Family history of thyroid disease in mother Paroxysmal SVT (supraventricular tachycardia) History of miscarriage, not currently Endometriosis Hx pulmonary embolism Hx of deep venous thrombosis History of fracture of right ankle Anxiety disorder Allergic rhinitis Asthma Gallstones Pulmonary embolism Surgical History History of appendectomy History of lumbar discectomy History of laparoscopic cholecystectomy (~08/19/23) Previous back surgery Family History Mother No problems noted. Daughter Owen-Danlos syndrome Sister Bronchial asthma Substance use disorder Mental health disorder Brother Drug abuse Suicide Mental health disorder Substance use disorder Father Substance use disorder Maternal Aunt Substance use disorder Maternal Grandfather Substance use disorder Social History Housing: House Alcohol intake: current Alcohol intake frequency: holidays/special occasions only Patient Tobacco Use Status: Former Tobacco user e-Cigarette/Vaping Use: Never Used service: No Current occupational status: employed Cognitive needs: No Hearing needs: No Vision needs: Yes Review of Systems Const Reports chills and Denies fever(s) Eyes Denies blurry vision ENT Denies otalgia, Reports nasal congestion, Reports sinus pain, Reports sore throat and Denies throat swelling Card Denies chest pain Resp Reports chest congestion and Reports cough Musc Denies myalgias Skin/Breast Denies rash Aller/Immun Denies throat swelling Physical Exam Vital Signs: Last Vital Signs Temp 97.7 F 02/02/25 14:29 Pulse 76 02/02/25 14:29 BP 110/72 02/02/25 14:29 Pulse Ox 96 02/02/25 14:29 Oxygen Delivery Method Room Air 02/02/25 14:29 BMI result Body Mass Index 30.7 General: Non-toxic, NAD. Speaking full sentences. Skin: Warm dry throughout Eye: EOMI HENT: Airway patent. Uvula midline. No pharyngeal erythema or edema. 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 +rhinorrhea Bilateral canals clear. TM non-erythematous, non-bulging bur slight fluid bilaterally. No TM perforation or hemotympanum noted. Respiratory: Diminished throughout without wheeze or rales Cardiac: RRR. No murmur MSK: Full ROM extremities. Neurology: Alert. No aphasia or facial droop. Gait without abnormality Psych: Good mood and affect Assessment & Plan Assessment & Plan (1) Acute cough: Code(s): R05.1 - Acute cough Plan: Patient seen and evaluated. Doxy and continue antihistamine Nebulizer refill given Prednisone only if wheezing onset (she was intructed how to take medicine) Patient gave verbal understanding and had no additional questions or concerns at time of discharge All questions answered Medications: New albuterol sulfate 0.63 mg (3 mL) inhalation QID PRN 75 mL 0RF shortness of breath or wheezing prednisone 40 mg (2 x 20 mg) PO DAILY 8 tabs 0RF doxycycline hyclate 100 mg PO BID 14 caps 0RF Coding Level of Care Code Est Pt Level 3 (22763) Diagnoses Acute cough R05.1
--- OUTSIDE RECORDS SUMMARY | 2025-02-02 14:29 | XMS_ITS | Clinical Summary ---
Author Organization [facility] Address [address] [place] [address] Care Team Providers Care Textile Supervisor Name Role Phone Liana Shepherd MD Primary Care Provider Surgical History Surgery Date Site/Laterality Comments APPENDECTOMY [...] Recently Relevant to Health Maintenance Care Teams Textile Supervisor Relationship Specialty Start Date End Date Liana Shepherd MD [address] [place] [address] PCP - General 02/20/24
== END 2025-02-02 15:03 | disposition home or self-care (01) ==
PROVIDERS: PCP Internal Medicine; Visit Provider Physician Assistant
DX: R05.1 Acute cough (principal)

== ENCOUNTER → 2025-02-02 14:27 | Outpatient (BNVA) | payer OTHER, SELFPAY | PROVIDERS: PCP Internal Medicine; Visit Provider Physician Assistant | DX: Z13.89 Encounter for screening for other disorder (principal) ==

== ENCOUNTER 2025-03-02 09:11 | Outpatient (AMB) | payer OTHER, SELFPAY ==
[2025-03-02 09:40] VITALS: BP 112/74; PULSE 70; TEMP 36.7; O2SAT 97; BMI 30.7
--- NOTE | 2025-03-02 09:40 | MHC.OFFWIV ---
Intake Vital Signs 03/02/25 09:40 Height 5 ft 2 in Weight 168 lb 2 oz BMI 30.7 BP 112/74 Blood Pressure Location Lt brachial Position Sitting Pulse 70 Pulse Source Pulse Oximeter Temp 98.0 F Temp Source Oral Pulse Oximetry (%) 97 Oxygen Delivery Method Room Air Intake Visit Reasons: EP-lt arm hives Intake Note: Pt presents to the office today for c/o left arm hives. Pt states she had an ablasion on Friday and since then she states she has had hives that are very itchy. Patient Tobacco Use Status: Former Tobacco user Allergies latex Allergy (Mild, Verified 03/02/25 10:08) Hives acetaminophen [From Tylenol] Allergy (Unknown, Verified 03/02/25 09:45) HIVES gabapentin [GABAPENTIN] Allergy (Unknown, Verified 03/02/25 09:45) HIVES oxycodone Allergy (Verified 03/02/25 09:45) Itching HPI HPI Comments History of Present Illness Details History of Present Illness - The patient is a 49-year-old female presenting with an allergic reaction following a recent ablation procedure. - The allergic reaction began after an ablation procedure 5 days ago, with symptoms of itching and hives at the IV site on her left arm - Benadryl has been used for temporary relief, but symptoms persist. - The patient reports menopausal symptoms affecting her allergic reactions. - The patient has a history of using prednisone for pneumonia and is aware of its effects. Physical Exam General: Cooperative, healthy appearing, comfortable, no acute distress and well developed Orientation: Patient oriented x3 Limitations: No limitations Head: Normal to inspection Ears: Hearing grossly normal bilaterally Nose: Normal External nose present Face and sinus: Normal facial exam Eyes: Appearance normal, both eyes and all related structures Neck: Normal visual inspection and Yes full ROM Respiratory: Normal respiratory effort and able to speak in complete sentences. Skin: raised hives on left anterior arm extending from upper arm through wrist, 1cm x 2.5cm area on antecubital fossa where tape presumably was placed. Neuro: Patient oriented x3 Extremities: Normal to inspection [facility] Medical History Family history of thyroid disease in mother Paroxysmal SVT (supraventricular tachycardia) History of miscarriage, not currently Endometriosis Hx pulmonary embolism Hx of deep venous thrombosis History of fracture of right ankle Anxiety disorder Allergic rhinitis Asthma Gallstones Pulmonary embolism Surgical History History of appendectomy History of lumbar discectomy History of laparoscopic cholecystectomy (~08/19/23) Previous back surgery Family History Mother No problems noted. Daughter Owen-Danlos syndrome Sister Bronchial asthma Substance use disorder Mental health disorder Brother Drug abuse Suicide Mental health disorder Substance use disorder Father Substance use disorder Maternal Aunt Substance use disorder Maternal Grandfather Substance use disorder Social History Housing: House Alcohol intake: current Alcohol intake frequency: holidays/special occasions only Patient Tobacco Use Status: Former Tobacco user e-Cigarette/Vaping Use: Never Used service: No Current occupational status: employed Cognitive needs: No Hearing needs: No Vision needs: Yes Review of Systems Const All systems reviewed & are unremarkable except as noted in HPI and below Physical Exam Vital Signs: Last Vital Signs Temp 98.0 F 03/02/25 09:40 Pulse 70 03/02/25 09:40 BP 112/74 03/02/25 09:40 Pulse Ox 97 03/02/25 09:40 Oxygen Delivery Method Room Air 03/02/25 09:40 BMI result Body Mass Index 30.7 Assessment & Plan Assessment & Plan (1) Contact dermatitis: Code(s): L25.9 - Unspecified contact dermatitis, unspecified cause Qualifiers: Contact dermatitis type: allergic Contact dermatitis trigger: adhesive Qualified Code(s): L23.1 - Allergic contact dermatitis due to adhesives Plan: Plan - Prescribe prednisone 20 mg daily for five days to manage the allergic reaction. - Recommend applying triamcinolone cream twice daily to reduce itching and inflammation. - Advise the use of Benadryl at night and Pepcid as needed to manage symptoms. - Updated the patient's allergy record to include latex allergy. Patient was informed and verbally consented to the use of an ambient scribe for clinic note documentation during this visit. Medications: New prednisone 20 mg PO QAM 5 tabs 0RF triamcinolone acetonide 0.1% 1 appl topical BID 30 grams 0RF Coding Level of Care Code Est Pt Level 3 (05499) Diagnoses Allergic contact dermatitis due to adhesives L23.1 Contact dermatitis type: allergic Contact dermatitis trigger: adhesive
--- OUTSIDE RECORDS SUMMARY | 2025-03-02 09:43 | XMS_ITS | Continuity of Care Document ---
Author Organization [facility] ter Address [address] [place] [id number]- Care Team Providers Care Head Inspector And Center Marker Name Role Phone Cora MORALES, Liana Scruggs Primary Care Physician [facility]counter [facility] [place]s): 02/25/25 - 02/25/[address] [id number] Discharge Disposition: A-D/C Home Attending Physician: Ramon Simmons MD Admitting Physician: Ramon Simmons MD Referring Physician: Ramon Simmons MD Encounter Type: Disch Daystay Allergies, Adverse Reactions, Alerts Substance Criticality Severity Reaction Reaction Severity Status Tylenol Active Medications budesonide-formoterol 160 mcg-4.5 mcg/inh inhalation aerosol with adapter INHALE TWO PUFFS BY MOUTH EVERY 12 HOURS FOR ASTHMA Start Date: 11/15/24 Status: Ordered Repeat number: 1 hydrOXYzine hydrochloride 10 mg oral tablet 1 tablet = 10 mg, By Mouth, 4 times a day, 0 Refills, Maintenance, 02/25/25 9:59:00 AM EDT, Partial fill upon patient request if the prescription is for a schedule II opioid drug. Start Date: 02/25/25 Status: Ordered Repeat number: 1 ProAir HFA 2 puffs, Inhalation, 4 times a day, 0 Refills, Maintenance, 03/21/14 12:47:11 PM EDT Start Date: 03/21/14 Status: Ordered Repeat number: 1 ZyrTEC 10 mg oral tablet 1 tablet = 10 mg, By Mouth, Daily, 0 Refills, Maintenance, 02/25/25 9:59:00 AM EDT, Partial fill uponpatient request if the prescription is for a schedule II opioid drug. Start Date: 02/25/25 Status: Ordered Repeat number: 1 Problem List Condition Confirmation Course Effective Dates Status Health St atus Informant Pulmonary emboli Confirmed Active Seasonal allergies Confirmed Active EKG study * Event Display: ECG 12-Lead Authored Date: Please click on pdf link to open report * Event Display: ECG 12-Lead Authored Date: Ventricular Rate: 58 BPM Atrial Rate: 58 BPM P-R Interval: 144 ms QRS Duration: 100 ms Q-T Interval: 428 ms QTC Calculation(Bazett): 420 ms P Ilfeld: 43 degrees R Ilfeld: -13 degrees T Ilfeld: 50 degrees Sinus bradycardia Low voltage QRS Borderline ECG When compared with ECG of 15-Nov-2024 09:27, No significant change was found Confirmed by RAMON SIMMONS ([id number]) on 02/25/2025 10:40:46 AM [place]: RAMON SIMMONS Note * Sharon Perez RN: PERFORM Event Display: Discharge/Transfer Note Hospital Authored Date: Nursing Discharge Note Entered On: 02/25/2025 19:16 EDT Performed On: 02/25/2025 19:15 EDT by Sharon Perez RN Nursing Discharge Note 2 Discharge Time : 02/25/2025 19:12 EDT Discharge Level of Care at Discharge : Home/Long-Term/Foster Care Patient Left Unit Via : Wheelchair Patient Accompanied Off Unit with : Responsible adult DC Instructions Provided & Signed by Pt : Yes Patient Understands D/C Instructions : Yes Verbalized Understanding of D/C Plan By : Patient, Responsible adult Patient Instructions Discharge Signed : Yes Discharge Comments : Bilateral groins remain CDI, stable upon discharge after ambulating halls of unit. Did Pt have Specialty Bed or Wound Vac : No Sharon Perez RN - 02/25/2025 19:15 EDT * Karina Cruz RN: PERFORM, MODIFY Event Display: Patient Education/Instruction Authored Date: Inpatient Adult Discharge Instructions. [address] [id number] Name: ART BURR : 1975?? Visit: 02/25/2025 09:27?? Current Date: 02/25/2025 17:52 ?? Account: [id number]?? Inpatient Adult Discharge Instructions We would like to thank you for allowing us to assist you with your healthcare needs. The following includes patient education materials and information regarding your injury/illness. Our entire staffstrives to provide an excellent experience for our patients and their families. PLEASE ENSURE YOU FOLLOW-UP PER THE INSTRUCTIONS BELOW! ?? YOUR OPINION IS IMPORTANT TO US! Please complete the survey you may receive by mail or email. Your feedback will be used to make improvements to the healthcare experiences of our patients and their families. Surveys are administered by [employer]. ?? If further treatment with your primary care physician or another doctor is recommended, it is important for you to keep the appointment. Call your primary care physician or return to the Emergency Department immediately if your condition worsens, fails to improve, or new symptoms develop. If you need to find a doctor, you can call [facility] for a referral at [phone] or toll free at [phone] or log in to [email or web address] ?? [facility], in keeping with [facility] guidance, no longer requires face masks for staff, patientsor visitors in most situations. Similiar to time spent indoors at other locations, there is the chance that you were exposed to repiratory viruses during your time with us (such as flu or COVID-19). If you develop symptoms concerning for a viral respiratory infection, please seek testing (and treatment if indicated) from your medical provider or home test kit. ?? You can view and manage your care through the patient portal or by using a health care anna of your choosing. [employer] is a website that allows you to securely view your medical information including your hospital discharge summary, office visit summaries, medications and follow-up visits. You can also request appointments, renew medications, and request access to your medical information using a health care anna of your choosing, or just ask a question. You are entitled to know the individuals who participated in your treatment. This information is available within your medical record and will be provided upon your request. You can enroll at [email or web address] or register d uring your next office visit. You have been discharged from [facility], Patient Care Unit: CARE??. If you have any questions regarding these instructions, including results of studies pending, afteryou leave, please call us and we will be happy to assist you 14/04. [facility] Nursing Unit Direct Phone Number, for 14/04 contact and results of studies pending CARE [address] [place] [address] Your Care Team Attending Physician Ramon Simmons MD?? Consulting Providers Ramon Simmons MD?? Discharging Providers Ramon Simmons MD Tests Performed Below is a partial list of the tests performed during your hospitalization. You may have had other tests and procedures not included in this list. Please discuss all test results with your provider. Basic Metabolic Panel CBC Type and Screen Basic Metabolic Panel?? CBC?? HCG Urine ( Test Urine)?? Type and Screen?? Primary Care Provider Cora MORALES , Liana Scruggs? Advance Directive Health Care Proxy on File No Patient refuses to discuss Discharge Vitals Temperature: 97.4 DegF Height: 160.02 cm Pulse Rate: 75 bpm Weight: 75 kg Respiratory Rate: 17 br/min Body Mass Index:??29.29 kg/m2??High Systolic Blood Pressure: 102 mm Hg Body surface area: 1.83 Diastolic Blood Pressure: 73 mm Hg ?? Oxygen Saturation: 97 % ?? Studies Pending All studies ordered during this hospital stay have been completed unless listed below. Please discuss all pending results with your provider listed above in these instructions. ?? HCG Urine ( Test Urine)?? What to do next Instructions From Your Doctor ?? Orders?? discharge after post procedure rest order complete, patient has ambulated and groin incision(s) arestable 30 mins post ambulation, ??02/25/25 14:51:00 EDT?? You Need to Schedule the Following Appointments Follow Up with??Ramon Simmons MD When:??Within 3-5 day: call to discuss follow up visit Where: [address] [facility] [address] [facility] [place] [address]- Discharge Medications ART BURR :1975 Visit Date:02/25/2025 Medications: Please continue your medications until treatment is completed or stopped by your provider. Medications not listed below should be discontinued. Discuss any questions related to medications with your provider. What How Much When Instructions Next Dose Unchanged Albuterol (ProAir HFA) 2 puff(s) Inhalation 4 times a day continue home schedule as prescribed Unchanged Budesonide-Formoterol (budesonide-formoterol 160 mcg-4.5 mcg/ inh inhalation aerosol withadapter) INHALE TWO PUFFS BY MOUTH EVERY 12 HOURS FOR ASTHMA ?? continue home schedule as prescribed Unchanged Cetirizine (ZyrTEC 10 mg oral tablet) 1 tab(s) Oral Daily continue home schedule as prescribed Unchanged HydrOXYzine (hydrOXYzine hydrochloride 10 mg oral tablet) 1 tab(s) Oral 4 times a day continue home schedule as prescribed Prescription Given During Visit No new medications prescribed at time of discharge.?? Laboratory Results Below is a partial list of the most recent Laboratory test results done prior to this discharge. You may have had other tests and procedures not included in this list. Please discuss all test resultswith your provider. Basic Metabolic Panel (02/25/2025) ???Sodium - 142 mmol/L???Potassium - 4.2 mmol/L???Chloride - 107 mmol/L???Bicarbonate Level - 24 mmol/L???Anion Gap - 11 mmol/L???Glucose Level - 87 mg/dL???BUN - 9 mg/dL???Creatinine-Blood - 0.69 mg/dL???Estimated GFR Creatinine - 105 ML/MIN/1.73 M2???Calcium - 9.6 mg/dL CBC (02/25/2025) ???WBC - 5.8 k/mm3???RBC - 4.54 m/mm3???Hgb - 14.3 Gm/dL???Hct - 40.9 %???MCV - 90.1 femtoliters???MCH - 31.5 pg???MCHC - 35.0 Gm/dL???Platelet Count - 270 k/mm3???RDW-SD - 39.3 femtoliters???MPV - 9.7 femtoliters???Nucleated RBC (Automated) - 0.0 #/100 WBC'S???Abs. NRBC - 0.0 k/mm3 Type and Screen (02/25/2025) ???Blood Type - B Positive???Antibody Screen - Negative You will be contacted within 72 hours with your results. Allergies (NKA means No Known Allergies) Tylenol Problems Active Problems??(2) Pulmonary emboli?? Seasonal allergies?? Education Materials Below is the list of Educational Leaflet Providered with your Discharge Instructions. [employer] Patient Education - Discharge Instructions for Catheter Ablation?? [employer] Patient Education - M-Groin I Discharge Instructions?? [employer] Patient Education - Anesthesia: Monitored Anesthesia Care (MAC)?? Valuables and Belongings I fully understand and agree that [facility] accepts no responsibility for all my personal property including clothing, toilet articles, radios, jewelry, dentures, hearing aids, rings, money, or any other property that is in my possession or is brought to me after admission. I understand certain valuables may be placed in a hospital safe for a short period of time. I understand that the hospital is not liable for loss or damage due to accident, fire, or other natural occurrence while said property is in the safe. I accept full responsibility for any personal property that I keep with me, and will not hold the hospital responsible in case of loss or disappearance. I acknowledge that i have been encouraged to send valuables and belongings home. ?? Review of Valuable and Belonging List: With patient Date for Pt to Sign Valuables/Belongings: 02/25/25 11:47:00 ?? Valuables & Belongings ?? Clothes Electronic devices Jewelry Monetary Items Personal devices Miscellaneous Medications (Valuables) Valuables at Bedside Pants, Shirt, Shoes, Undergarments Cell phone ? Valuables Sent Home ? Valuables Sent to Security ? Valuables Sent to Locker ? Other Discharge Information ? Pulmonary Rehab Status?? Pulmonary Rehab Discharge Status?? Respiratory Rate: 17 br/min ? Common Emergency Awareness Tips IS IT A STROKE? Act FAST and Check for these signs: FACE Does the face look uneven? ARM Does one arm drift down? SPEECH Does their speech sound strange? TIME Call at any sign of stroke ?? Heart Attack Signs Chest discomfort: Most heart attacks involve discomfort in the center of the chest and lasts more than a few minutes, or goes away and comes back. It can feel like uncomfortable pressure, squeezing, fullness or pain. Discomfort in upper body: Symptoms can include pain or discomfort in one or both arms, back, neck, jaw or stomach. Shortness of breath: With or without discomfort. Other signs: Breaking out in a cold sweat, nausea, or lightheaded. Remember, MINUTES DO MATTER. If you experience any of these heart attack warning signs, call to get immediate medical attention! ?? Smoking can increase your chances of developing chronic health problems and can cause harmful effects to other family members in your house. If you smoke, you are strongly encouraged to quit. Please call [facility] [facility] at [phone] or [phone] ([phone]) or log in to [email or web address] for referrals to smoking cessation programs. ?? 817 Suicide & Crisis Lifeline is available 14/04 if you or someone you know needs to find a reason to keep living. By calling 509 you'll be connected to a skilled, trained counselor at a crisis center in your area. INPATIENT DISCHARGE INSTRUCTIONS SIGNATURE PAGE ART BURR Location:[facility] Registration Date and Time:02/25/2025 09:27 EDT Primary Care Physician: Cora MORALES , Liana Scruggs, Attending Physician: Violet MORALES, Ramon Arreola, I ART BURR, have received the above patient education materials/instructions and have verbalized understanding. If ambulance or transport services are being used I further acknowledge beinggiven a choice of service. ?? If you need to contact me, please call me at this number: . Patient/Environmental Projects Advisor Name: Patient/Environmental Projects Advisor Signature: Relationship to Patient: Witness Name/Signature: Date: * Karina Cruz RN: PERFORM Event Display: Patient Education Leaflets Authored Date: [id number] Discharge Instructions for Catheter Ablation ?? [address] Discharge Instructions for Catheter Ablation You have had a procedure called catheter ablation. It was??used to treat an abnormal heartbeat (arrhythmia). This procedure destroyed (ablated) the cells in your heart that were causing your heart rhythm problem. During the procedure, the health care provider put a thin,??flexible??wire (catheter)??into a blood vessel in your groin. You may have also had a catheter placed through a vein in your neck. The provider then threaded the catheter to your heart to find the area of concern and treat theproblem. Home care Here are recommendations for care at home: ??? Make arrangements for someone to drive you home after the procedure. You will be given medicine to relax you (sedation). Your health care provider may tell you not to??drive for 24 to 48 hours after the procedure. ??? Expect to be able to go back to your normal daily activities in the next 1 to 2 days. 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 ??? Don't do any heavy physical activity or excessive bending at the waist for several days after the procedure. This will allow your body to heal. ??? Don't lift heavy objects until your provider tells you to. Talk with your provider about any specific limits you need to follow. ??? Ask your provider when you can??return to work. ??? Check the area where the catheter was inserted for signs of infection every day for a week. Keep the site dry as instructed. Signs of infection include redness, swelling, drainage, or warmth at the incision site.??Take your temperature if you feel you may have a fever. Let your provider know if you develop any symptoms of infection orsee any discharge from your site. ??? Take your medicines exactly as directed. Don???t skip doses. You may need to make some changes in your medicines because of the ablation procedure. Be sure to goover your medicine instructions with your provider before you are discharged. ??? Learn to take your own pulse. Keep a record of your results. Ask your provider which readings mean that you need medical attention. ?? Follow-up care Make a follow-up appointment as directed by your health care provider. Your provider will check howthe catheter site is healing. In many cases, 1 ablation is enough to treat an arrhythmia. But sometimes the problem comes back or another problem is found. If this happens, you may need a second procedure. ?? When to call your doctor Contact your health care provider right away if you have: ??? Redness, pain, swelling, bleeding, or drainage from the area where the catheter was put in. ???A temperature of 100.4??F (38??C) or higher, or as directed by your provider. ??? Sudden coldness, pain, or numbness in the leg or arm where the catheter was put in. ??? Nausea or vomiting. ??? Difficulty swallowing, excessive pain when swallowing, or vomiting blood. ??? A heart rate that stays high. Note: Ask your provider what to expect about your heartbeat. Sometimes the irregularity goes away right after the procedure. Other times it may take longer to go away. ?? Call 911 Call 911 right away if you have: ??? Bleeding from the puncture site that does not slow down when you press on it firmly. ??? Chest pain, shortness of breath, or dizziness. ??? Sudden numbness or weakness, especially on one side of the body, or difficulty speaking. ??? A sudden loss of consciousness/responsiveness. ?? Last Reviewed Date: 2024 00:00:00 ?? [id number] The [employer]. All rights reserved. This information is not intended as a substitute for professional medical care. Always follow your healthcare professional's instructions. ?? * Karina Cruz RN: PERFORM Event Display: Patient Education Leaflets Authored Date: [id number] M-Groin I Discharge Instructions ?? 179 Groin Discharge Instructions No heavy lifting over 10 pounds (for example: gallon of milk) 1 week following the procedure; gradually increase normal activity over the next 5 days. Avoid straining/pushing when moving bowels You may feel like resting more after your procedure. Slowly start to do more each day. Rest when you feel it is needed. Make sure to look at your procedure site every day until it is completely healed. You may see bruising at the puncture site and that is common after the procedure. You may shower the day after your procedure. Remove the band aid before showering. Wash the area gently with soap and water. Leave open to air. Do not take tub baths, hot tubs, soaking of the puncture site or swimming for 1 week. Do not put any creams, powders or lotions on your puncture site You may resume sexual activity the day after your procedure; avoid bending the hip on ?? the side of the groin puncture excessively and any strenuous positions for 1 week. Call your doctor if your procedure site develops any of the following: ??? New onset severe pain ??? New onset lump or swelling ??? Bleeding that does not stop with lightpressure ? * Karina Cruz RN: PERFORM Event Display: Patient Education Leaflets Authored Date: [id number] Anesthesia: Monitored Anesthesia Care (MAC) ?? Anesthesia: Monitored Anesthesia Care (MAC) You???re going to have surgery. During surgery, you???ll be given medicine called anesthesia. This will keep you comfortable and pain-free. Your surgeon will use monitored anesthesia care (MAC). Thissheet tells you more about this type of anesthesia. What is monitored anesthesia care? MAC keeps you very drowsy during surgery. You may be awake, but you likely won't remember much. Andyou won???t feel pain. With MAC, medicines are given through an IV (intravenous) line into a vein??in your arm or hand. A local anesthetic will also be injected into the skin and muscle around the surgical site to numb it. The anesthesia provider monitors you during the procedure. They check your heart rate and rhythm, blood pressure, and blood oxygen level. ?? What to expect during your procedure You'll likely have: ??? A pulse oximeter. This is a small device put on the end of your finger. This measures your blood oxygen level. ??? Electrocardiography leads (electrodes). These are sticky pads put on your chest. They attach to wires. These lead to a device that records your heart rate and rhythm. ??? Medicines given through an IV. These relax you and prevent pain. You may be awake or sleep lightly. If you have local anesthetic, it's injected directly into your skin. ??? A face mask. This is to give you oxygen. This may be done if needed. ?? Possible risks MAC has some risks. These include: ??? Breathing problems ??? Upset stomach (nausea) and vomiting ??? Allergic reaction to the anesthetic? Anesthesia safety Tips for anesthesia safety include:? Follow all instructions for not eating or drinking before your procedure. ??? Tell your healthcare provider all prescription and bqas-lyt-eegtdnw medicines you take. Tell them if you use any anti-inflammatory medicine or blood thinners. This includes aspirin. Tell them if you take any vitamins,herbs, or other supplements. ??? Have an adult family member or friend drive you home after the procedure. For the first 24 hours after your surgery: ??? Don't drive or use heavy equipment. ??? Don't make important decisions or sign documents. ??? Don't drink alcohol. ??? Have someone stay with you, if possible. They can watch for problems and help keep you safe. ?? Last Reviewed Date: 2023 00:00:00 ?? [id number] [employer]. All rights reserved. This information is not intended as a substitute for professional medical care. Always follow your healthcare professional's instructions. ?? Patient Care team information Care Team Personnel Name: Cora MORALES , Liana Scruggs Position: Reference Physician Member Role: PCP Address: [address] [place], [place] [address] Telecom: Care Team Related Persons Name: FANY BURR Insurance Providers Guarantor name: [facility] hospital Plan Information #: 1 [facility] Payer Identifier: KENNEDI Member Number: [id number] Group Number: [id number] Subscriber Identifier: [id number] Relationship to Subscriber: self Coverage Type: Managed Care (Private) Coverage Verification Date: NA Telecom: NA Address:
== END 2025-03-02 10:20 | disposition home or self-care (01) ==
PROVIDERS: PCP Internal Medicine; Visit Provider Physician Assistant
DX: L23.1 Allergic contact dermatitis due to adhesives (principal)

== ENCOUNTER → 2025-03-02 09:11 | Outpatient (BNVA) | payer OTHER, SELFPAY | PROVIDERS: PCP Internal Medicine; Visit Provider Physician Assistant ==

== ENCOUNTER 2025-04-18 13:23 | Outpatient (AMB) | payer OTHER, SELFPAY ==
[2025-04-18 13:31] VITALS: BP 102/58; PULSE 73; O2SAT 96; BMI 29.8
--- NOTE | 2025-04-18 13:31 | MHC.OFFVIS ---
Vital Signs 04/18/25 13:31 Height 5 ft 2 in Weight 163 lb 2.273 oz BMI 29.8 BP 102/58 L Blood Pressure Location Lt brachial Position Sitting Pulse 73 Pulse Source Pulse Oximeter Pulse Oximetry (%) 96 Oxygen Delivery Method Room Air Intake Visit Reasons: Asthma Intake Note: pt is here for follow up and states she is feeling, generic symbicort is only occasion due to itchy spots all over if she using more than once a day. No issue with name brand. Hinging Machine Operator Required: No Allergies latex Allergy (Mild, Verified 04/18/25 13:51) Hives acetaminophen (From Tylenol) Allergy (Unknown, Verified 04/18/25 13:51) HIVES gabapentin (GABAPENTIN) Allergy (Unknown, Verified 04/18/25 13:51) HIVES oxycodone Allergy (Verified 04/18/25 13:51) Itching Medication List - Last Reconciled 04/18/25 by Maria R Lux MD albuterol sulfate 90 mcg/actuation 2 puffs inhalation Q4-6H PRN 30 days albuterol sulfate 0.63 mg (3 mL) inhalation QID PRN cetirizine (Zyrtec) 10 mg PO DAILY hydroxyzine HCl 10 mg PO DAILY PRN ibuprofen 600 mg PO Q6H PRN triamcinolone acetonide 0.5% 1 appl topical BID triamcinolone acetonide (Nasacort) 1 spray intranasal DAILY Do you need a note to return to daycare/school/sports/work: No HPI HPI Asthma: Details: THIS 49 YEARS OLD FEMALE PATIENT, WHO WORKS IN THE [employer]PARTMENT OF [employer]. COMES FOR FOLLOW-UP AFTER MORE THAN A YEAR, SHE HAS CHRONIC ALLERGIC RHINITIS AND BRONCHIAL ASTHMA, FOR QUITE A FEW YEARS, AND IT WAS WELL CONTROLLED LONG SHE WAS ON BRAND NAME SYMBICORT, NOW THAT SHE IS ON GENERIC SYMBICORT SHE IS HAVING URTICARIAL SPOTS ON THE ARMS AFTER USING THIS. SO SHE IS NOT ABLE TO USE IT REGULARLY AND THUS SHE IS HAVING INCREASED AMOUNT OF NASAL CONGESTION AND WHEEZING. SHE NEEDS TO USE ALBUTEROL AT LEAST TWICE EVERY DAY TO KEEP SYMPTOMS UNDER CONTROL. SHE ALSO HAD TO STOP USING MONTELUKAST TABLET BECAUSE OF THE SIDE EFFECT. IT WAS WORSENING HER DEPRESSION. AND AFTER SHE STOPPED USING MONTELUKAST SHE FEELS MUCH BETTER. SHE USED TO HAVE IT AT HOME WHICH SHE HAD TO PUT DOWN BECAUSE OF ILLNESS, AND NOW THERE IS ONLY 1 CAT FROM A NEIGHBOR WHO COMES IN THE HOUSE ONCE IN A WHILE BUT STAYS AT A DISTANCE. SHE IS NONSMOKER. [facility] Medical History Family history of thyroid disease in mother Paroxysmal SVT (supraventricular tachycardia) History of miscarriage, not currently Endometriosis Hx pulmonary embolism Hx of deep venous thrombosis History of fracture of right ankle Anxiety disorder Allergic rhinitis Asthma Gallstones Pulmonary embolism Surgical History History of appendectomy History of lumbar discectomy History of laparoscopic cholecystectomy (~08/19/23) Previous back surgery Family History Mother No problems noted. Daughter Owen-Danlos syndrome Sister Bronchial asthma Substance use disorder Mental health disorder Brother Drug abuse Suicide Mental health disorder Substance use disorder Father Substance use disorder Maternal Aunt Substance use disorder Maternal Grandfather Substance use disorder Social History Housing: House Alcohol intake: current Alcohol intake frequency: holidays/special occasions only Patient Tobacco Use Status: Former Tobacco user e-Cigarette/Vaping Use: Never Used service: No Current occupational status: employed Cognitive needs: No Hearing needs: No Vision needs: Yes Review of Systems Const All systems reviewed & are unremarkable except as noted in HPI and below Eyes Reports no additional complaints ENT Reports nasal congestion (INTERMITTENT) and Reports nasal discharge (INTERMITTENT) Card Reports no additional complaints Resp Reports as per HPI GI Reports no additional complaints Reports no additional complaints Musc Reports no additional complaints Skin/Breast Reports system reviewed and no additional complaints, except as documented Neuro Reports no additional complaints Psych Reports no additional complaints Endo Reports no additional complaints Thad/Lymph Reports no additional complaints Physical Exam Vital Signs: Last Vital Signs Pulse 73 04/18/25 13:31 BP 102/58 L 04/18/25 13:31 Pulse Ox 96 04/18/25 13:31 Oxygen Delivery Method Room Air 04/18/25 13:31 BMI result Body Mass Index 29.8 Const General: healthy appearing, comfortable, no acute distress, alert and awake Orientation/consciousness: patient oriented x3 HEENT Head: Yes normal to inspection General nose exam: No nasal polyps present and No nasal discharge present Face and sinus: Yes sinuses nontender Mouth: oropharynx normal Throat: Yes posterior oropharynx normal Eyes General: appearance normal, both eyes and all related structures Neck Neck: Yes normal visual inspection, Yes no lymphadenopathy, Yes trachea midline and Yes no JVD Thyroid: Thyroid normal Chest Chest palpation & inspection: normal inspection of the chest and no tenderness Resp Other: PERCUSSION NOTE RESONANT, BOTH LUNGS ARE CLEAR TO AUSCULTATION, NO WHEEZES OR RHONCHI ARE HEARD. Cardio Palpation: normal PMI Rate: regular rate Rhythm: regular rhythm Heart sounds: no gallops and no murmurs Peripheral pulses: Peripheral pulses 2+ throughout GI Palpation (GI): Soft to palpation, nontender, No hepatosplenomegaly present and no masses Auscultation: normal bowel sounds Back/Spine/Pelvis Thoracic/Lumbar Spine: thoracic and lumbar spine normal to inspection Skin General skin exam: no rashes or lesions noted Neuro General: patient oriented x3 and no focal motor deficits Cranial nerves: Yes CN's II-XII intact bilaterally Extrem General: Yes normal to inspection, Yes no clubbing, cyanosis or edema and Yes no calf tenderness Psych Appearance: grossly normal and well kempt Speech and movement: Normal speech and movement present Office Procedures Spirometry Testing Spirometry Comments: In office spirometry completed with results given to Dr Lux. [id number]- Spirometry Results Reviewed Results Reviewed: SPIROMETRY NORMAL CBC 01/08/24 EIOSINOPHIL COUNT 7.4 % Assessment & Plan Assessment & Plan (1) Allergic rhinitis: Comment: CHRONIC ALLERGIC RHINITIS SECONDARY TO ENVIRONMENTAL AND SEASONAL ALLERGIES. SHE DID MUCH BETTER ON ON MONTELUKAST BUT HAD TO STOP IT BECAUSE OF SIDE EFFECT OF DEPRESSION. Code(s): J30.9 - Allergic rhinitis, unspecified Category: Medical Qualifiers: Allergic rhinitis seasonality: seasonal Allergic rhinitis trigger: unspecified Qualified Code(s): J30.2 - Other seasonal allergic rhinitis Plan: ADVISED TO USE NASACORT 1 SPRAY IN EACH NOSTRIL DAILY. AND MAY USE ZYRTEC 10 MG ONCE A DAY PRN (2) Asthma: Comment: LONG-TIME HISTORY OF BRONCHIAL ASTHMA, MOSTLY ALLERGIC, . WELL CONTROLLED WITH CURRENT MED, ( SYMBICORT 160-4.5 ) BUT HAVING PROBLEM WITH THE GENERIC SYMBICORT, WHICH IS CAUSING ALLERGIC DERMATITIS ( URTICARIAL SPOTS ON THE ARMS AND ITCHING) Code(s): J45.909 - Unspecified asthma, uncomplicated Category: Medical Qualifiers: Asthma complication type: uncomplicated Asthma persistence: intermittent Asthma severity: mild Qualified Code(s): J45.20 - Mild intermittent asthma, uncomplicated Plan: WILL HAVE TO PRESCRIBE AN ALTERNATIVE TO GENETICS SYMBICORT. USE ALBUTEROL HFA 2 PUFFS Q 6 HOURS P.R.N. Orders: Orders AMB Spirometry Testing 04/18/25 J45.20 - Mild intermittent asthma, uncomplicated Coding Level of Care Code Est Pt Level 3 (36644) Diagnoses Seasonal allergic rhinitis, unspecified trigger J30.2 Allergic rhinitis seasonality: seasonal Allergic rhinitis trigger: unspecified Mild intermittent asthma without complication J45.20 Asthma complication type: uncomplicated Asthma persistence: intermittent Asthma severity: mild CPT Codes Spirometry - CPT: 60904- Spirometry ([id number])
--- OUTSIDE RECORDS SUMMARY | 2025-04-18 14:06 | XMS_ITS | Clinical Summary ---
Author Organization [facility] Address [address] [place] [address] Care Team Providers Care Dental Ceramist Name Role Phone Liana Shepherd MD Primary [...] Panel) 08/31/2022 Colorectal Cancer Screening: Colonoscopy 08/31/2022 HIV Screening 08/31/2022 Hepatitis C Screening 08/31/2022 Social Influencers of Health Screening 08/31/2022 Hypertension/CHF/CAD Annual BMP Blood Test 09/07/2022 Breast Cancer Screening 04/14/2023 04/14/20 21, 05/18/2018, 05/13/2017 Zoster Vaccines (1 of 2) 2023 COVID-19 Vaccine (3 - 2023-2 5 season) 2024 02/06/2021, 01/16/2021 Depression Screening 09/22/2024 Influenza Vaccine (#1) 2025 , 06/06/2020, 06/07/2019 DTaP,Tdap,and Td Vaccines (2 - [...] interpreted with the aid of computer-aided detection. Comparison is made with 05/18/2018 and 05/13/2017. Breast parenchyma is composed of scattered fibroglandular densities. No new suspicious mass, architectural distortion, or suspicious [...] malignancy. BI-RADS 1 - negative us Daly Mosquera PA IMG XR PROCEDURES Final Result from Last 3 Months or Most Recently Relevant to Health Maintenance Care Teams Dental Ceramist Relationship Specialty Start Date End Date Liana Shepherd MD [address] [place] [address] PCP - General 02/20/24
--- OUTSIDE RECORDS SUMMARY | 2025-04-18 14:06 | XMS_ITS ---
Author Name [facility] Organization Unknown Care Team Organization Name Specialty Phone Email Start Date End Da te [facility] Daly Mosquera Primary Care 03/27/2023 05/10/20 [facility] Matt Starr Primary Care 07/30/2022 05/10/2024
== END 2025-04-18 14:15 | disposition home or self-care (01) ==
LOC: HO.HPS 13:24
PROVIDERS: PCP Internal Medicine; Visit Provider Internal Medicine
DX: J30.2 Other seasonal allergic rhinitis (principal); J45.20 Mild intermittent asthma, uncomplicated
CPT/HCPCS: 99213

== ENCOUNTER → 2025-04-18 13:23 | Outpatient (BNVA) | payer OTHER, SELFPAY | PROVIDERS: PCP Internal Medicine; Visit Provider Internal Medicine | DX: J30.2 Other seasonal allergic rhinitis (principal); J45.20 Mild intermittent asthma, uncomplicated | CPT/HCPCS: 94010 ==

== ENCOUNTER 2025-06-28 11:25 | Outpatient (REF) | payer OTHER, SELFPAY ==
[2025-06-29 07:57] LABS: Chlamydia pneumoniae PCR Not Detected (Not Detect.); Coronavirus 229E PCR Not Detected (Not Detect.); Coronavirus HKU1 PCR Not Detected (Not Detect.); Coronavirus NL63 PCR Not Detected (Not Detect.); Coronavirus OC43 PCR Not Detected (Not Detect.); RSV PCR Not Detected (Not Detect.); Rhino/Enterovirus PCR Not Detected (Not Detect.)
[2025-06-29 08:50] LABS: Influenza A H1 PCR Not Detected (Not Detect.); Influenza A H1-2009 PCR Not Detected (Not Detect.); Influenza A H3 PCR Not Detected (Not Detect.); SARS-CoV-2 PCR Not Detected (Not Detect.)
== END 2025-06-28 11:26 | disposition home or self-care (01) ==
LOC: HO.LNP 11:25
PROVIDERS: PCP Internal Medicine; Visit Provider Physician Assistant Medical
DX: J06.9 Acute upper respiratory infection, unspecified (principal); R06.02 Shortness of breath; R05.9 Cough, unspecified
CPT/HCPCS: 87633

== ENCOUNTER 2025-06-28 11:25 | Outpatient (AMB) | payer OTHER, SELFPAY ==
[2025-06-28 12:06] VITALS: BP 118/80; PULSE 66; TEMP 36.6; O2SAT 95
--- NOTE | 2025-06-28 12:06 | AM.OFFWIN_ITS ---
Intake Vital Signs 06/28/25 12:06 Height 5 ft 2 in Weight 164 lb BMI 30.0 BP 118/80 Blood Pressure Location Lt brachial Position Sitting Pulse 66 Pulse Source Pulse Oximeter Temp 97.9 F Temp Source Oral Pulse Oximetry (%) 95 Oxygen Delivery Method Room Air Intake Visit Reasons: ep shortness of breath cough Intake Note: pt presents with chest congestion with productive cough, chest feels heavy. states she is using her nebulizer repetitively without fci relief. also c/o epigastric pain. Patient Tobacco Use Status: Former Tobacco user Allergies acetaminophen (From Tylenol) Allergy (Intermediate, Verified 06/28/25 12:09) Hives latex Allergy (Mild, Verified 06/28/25 12:09) Hives gabapentin (GABAPENTIN) Allergy (Unknown, Verified 06/28/25 12:09) HIVES oxycodone Allergy (Verified 06/28/25 12:09) Itching budesonide (From Symbicort) Adverse Reaction (Mild, Verified 06/28/25 12:11) Itching formoterol (From Symbicort) Adverse Reaction (Mild, Verified 06/28/25 12:11) Itching Do you need a note to return to daycare/school/sports/work: No HPI HPI Comments History of Present Illness Details History - The patient is a 49-year-old female pr esenting with symptoms of an upper respiratory tract infection and asthma exacerbation. - She reports the onset of cough and elie al congestion last week, which progressively worsened, leading to severe nocturnal symptoms including difficulty breathing and coughing fits. - Gastrointestinal symptoms included anika rrhea, which resolved after three days, but she continues to experience heartburn and chest discomfort. - The patient has a history of asthma an d uses a nebulizer and inhalers regularly, but reports inadequate relief from current symptoms. - She has tried aawa-zhn-rozgitp medicat ions such as Robitussin and Sudafed without significant improvement. - The patient reports no fever, sore thr oat, or ear pain, and the sputum is clear. - She just doesn't feel well. - She denies sick contacts or smoking. - She denies recent travel. Physical Exam General: Cooperative, healthy appearing, comfortable and no acute distress Orientation/consciousness: Patient oriented x3 Limitations: No limitations Head: Normal to inspection Ears: Hearing grossly normal bilaterally, external ears normal and TM's normal bilaterally Nose: Normal external nose present, normal nares present, and no nasal discharge present. Face and sinus: Sinuses nontender to palpation. Mouth: Normal oral and palatal mucosa present and moist mucous membranes noted. Throat: Tonsils normal. Uvula is midline. Posterior oropharynx with erythema and no exudates. Eyes: Appearance normal, both eyes and all related structures Neck: Normal visual inspection, full ROM. No lymphadenopathy noted. Respiratory: Clear to auscultation bilaterally. Normal respiratory effort, able to speak in complete sentences. No respiratory distress, not tachypneic, no tripod positioning and no use of accessory muscles. Wheezing and rattling in the chest noted, worse when lying down. Cardiovascular: Regular rate and rhythm. Normal S1 and S2 Skin: No rashes or lesions noted Patient was informed and verbally consented to the use of an ambient scribe for clinic note documentation during this visit [facility] Medical History Family history of thyroid disease in mother Paroxysmal SVT (supraventricular tachycardia) History of miscarriage, not currently Endometriosis Hx pulmonary embolism Hx of deep venous thrombosis History of fracture of right ankle Anxiety disorder Allergic rhinitis Asthma Gallstones Pulmonary embolism Surgical History History of appendectomy History of lumbar discectomy History of laparoscopic cholecystectomy (~08/19/23) Previous back surgery Family History Mother No problems noted. Daughter Owen-Danlos syndrome Sister Bronchial asthma Substance use disorder Mental health disorder Brother Drug abuse Suicide Mental health disorder Substance use disorder Father Substance use disorder Maternal Aunt Substance use disorder Maternal Grandfather Substance use disorder Social History Housing: House Alcohol intake: current Alcohol intake frequency: holidays/special occasions only Patient Tobacco Use Status: Former Tobacco user e-Cigarette/Vaping Use: Never Used service: No Current occupational status: employed Cognitive needs: No Hearing needs: No Vision needs: Yes Review of Systems Const All systems reviewed & are unremarkable except as noted in HPI and below Physical Exam Vital Signs: Last Vital Signs Temp 97.9 F 06/28/25 12:06 Pulse 66 10/07/25 12:06 BP 118/80 06/28/25 12:06 Pulse Ox 95 06/28/25 12:06 Oxygen Delivery Method Room Air 06/28/25 12:06 BMI result Body Mass Index 30.0 Assessment & Plan Assessment & Plan (1) URI with cough and congestion: Code(s): J06.9 - Acute upper respiratory infection, unspecified Plan Most likely URI vs covid vs RSV vs flu vs viral illness vs CAP plan - tylenol or motrin as needed for pain or fever - Prescribed prednisone and cough medicine to manage symptoms. - Ordered a comprehensive respiratory panel to identify any viral pathogens. - Continued use of nebulizer and inhalers, with a refill provided for nebulizer solution. - will call her with the results - follow up with PCP Orders: Orders Resp Pathogen Panel - [facility] Today J06.9 - Acute upper respiratory infection, unspecified Medications: New prednisone 40 mg (2 x 20 mg) PO DAILY 10 tabs 0RF 5 days benzonatate 100 mg PO bid-tid PRN 21 caps 0RF Cough 7 days Refilled albuterol sulfate 0.63 mg (3 mL) inhalation QID PRN 75 mL 0RF shortness of breath or wheezing Coding Level of Care Code Est Pt Level 3 (81452) Diagnoses URI with cough and congestion J06.9
--- OUTSIDE RECORDS SUMMARY | 2025-06-28 14:24 | XMS_ITS | Clinical Summary ---
Author Organization [facility] Address [address] [place] [address] Care Team Providers Care Experimental Mechanic Electrical Name Role Phone Liana Shepherd MD Primary [...] Health Maintenance Due Date Last Done Comments Colorectal Cancer Screening: Colonoscopy 1973 Hepatitis A Vaccines (1 of 2 - Risk 2-dose series) 1992 Hepatitis B Vaccines (1 of 3 - 19+ 3-dose series) 1992 Cervical Cancer Screening: P ap Smear 1994 Pneumococcal Vaccine: 50+ Years (2 of 2 - PPSV23, PCV20, or PCV21) 07/08/2017 05/13/2017 Cholesterol Screening (Lipid Panel) 08/31/2022 HIV Screening 08/31/2022 Hepatitis C Screening 08/31/2022 Social Influencers of Health Screening 08/31/2022 Hypertension/CHF/CAD Annual BMP Blood Test 09/07/2022 Breast Cancer Screening 04/14/2023 04/14/20 21, 05/18/2018, 05/13/2017 Zoster Vaccines (1 of 2) 2023 Depression Screening 09/22/2024 COVID-19 Vaccine (3 - 2024-2 6 season) 2025 02/06/2021, 01/16/2021 Influenza Vaccine (#1) 2025 2, 06/06/2020, 06/07/2019 DTaP,Tdap,and Td Vaccines (2 - Td or Tdap) 02/28/2027 02/28/2017 RSV Immunization Adult Patients (1 - 1-dose 75+ series) 2048 HIB Vaccines Aged Out No longer eligi [...] Recently Relevant to Health Maintenance Care Teams Experimental Mechanic Electrical Relationship Specialty Start Date End Date Liana Shepherd MD [address] [place] [address] PCP - General 02/20/24
== END 2025-06-28 13:27 | disposition home or self-care (01) ==
PROVIDERS: PCP Internal Medicine; Visit Provider Physician Assistant Medical
DX: J06.9 Acute upper respiratory infection, unspecified (principal)

== ENCOUNTER 2025-07-18 09:47 | Outpatient (AMB) | payer OTHER, SELFPAY ==
[2025-07-18 09:50] VITALS: BP 120/78; PULSE 65; BMI 30.2
--- NOTE | 2025-07-18 09:50 | A.OFFVIS_ITS ---
Vital Signs 07/18/25 09:50 Height 5 ft 2 in Weight 165 lb 5.547 oz BMI 30.2 BP 120/78 Blood Pressure Location Lt brachial Position Sitting Pulse 65 Intake Visit Reasons: 6 mth f/up Intake Note: 6 month follow-up with ekg feeling good Editor House Organ Required: No Allergies acetaminophen (From Tylenol) Allergy (Intermediate, Verified 06/28/25 12:09) Hives latex Allergy (Mild, Verified 06/28/25 12:09) Hives gabapentin (GABAPENTIN) Allergy (Unknown, Verified 06/28/25 12:09) HIVES oxycodone Allergy (Verified 06/28/25 12:09) Itching budesonide (From Symbicort) Adverse Reaction (Mild, Verified 06/28/25 12:11) Itching formoterol (From Symbicort) Adverse Reaction (Mild, Verified 06/28/25 12:11) Itching Medication List - Last Reconciled 07/18/25 by Jordan Riley MD albuterol sulfate 90 mcg/actuation 2 puffs inhalation Q4-6H PRN 30 days albuterol sulfate 0.63 mg (3 mL) inhalation QID PRN benzonatate 100 mg PO bid-tid PRN 7 days cetirizine (Zyrtec) 10 mg PO DAILY hydroxyzine HCl 10 mg PO DAILY PRN prednisone 40 mg (2 x 20 mg) PO DAILY 5 days triamcinolone acetonide (Nasacort) 1 spray intranasal DAILY PRN HPI Comments Details: Nola comes for follow-up. She had undergone slow pathway modification for SVT and has been pretty much successful. However she still continues to feel fluttering in his chest and feels like SVT would start but does not start. She has had no prolonged palpitation. She is concerned about this. She says frequency is increased slightly since she has recently had a lot of stress related to personal issues. She says she is not bothered by the symptoms as they happen quite infrequently. [facility] Medical History Family history of thyroid disease in mother Paroxysmal SVT (supraventricular tachycardia) History of miscarriage, not currently Endometriosis Hx pulmonary embolism Hx of deep venous thrombosis History of fracture of right ankle Anxiety disorder Allergic rhinitis Asthma Gallstones Pulmonary embolism Surgical History History of appendectomy History of lumbar discectomy History of laparoscopic cholecystectomy (~08/19/23) Previous back surgery Family History Mother No problems noted. Daughter Owen-Danlos syndrome Sister Bronchial asthma Substance use disorder Mental health disorder Brother Drug abuse Suicide Mental health disorder Substance use disorder Father Substance use disorder Maternal Aunt Substance use disorder Maternal Grandfather Substance use disorder Social History Housing: House Alcohol intake: current Alcohol intake frequency: holidays/special occasions only Patient Tobacco Use Status: Former Tobacco user e-Cigarette/Vaping Use: Never Used service: No Current occupational status: employed Cognitive needs: No Hearing needs: No Vision needs: Yes Review of Systems Const Denies chills, Denies fatigue, Denies fever(s), Denies frequent falls, Denies weakness, Denies weight gain and Denies weight loss ENT Denies dizziness Card Denies chest pain, Denies leg edema, Denies lightheadedness, Denies palpitations, Denies dyspnea, Denies dyspnea on exertion, Denies orthopnea and Denies other (loss of consciousness) Resp Denies cough, Denies dyspnea and Denies dyspnea on exertion GI Denies hematochezia and Denies change in stool character Musc Denies abnormal gait, Denies muscle weakness, Denies numbness, Denies radiating pain into limb and Denies tingling Neuro Denies Abnormal speech present, Denies abnormal gait, Denies dizziness, Denies f requent falls, Denies numbness, Denies tingling and Denies weakness Endo Denies fatigue and Denies palpitations Physical Exam Vital Signs: Last Vital Signs Pulse 65 07/18/25 09:50 BP 120/78 07/18/25 09:50 BMI result Body Mass Index 30.2 Const General: cooperative, comfortable, no acute distress, alert, awake and Physically active Nutritional Appearance: overweight Orientation/consciousness: patient oriented x3 Limitations: no limitations HEENT Head: Yes normocephalic and Yes atraumatic Neck Neck: Yes trachea midline, Yes supple and Yes no JVD Resp Effort & Inspection: normal respiratory effort Auscultation: clear to auscultation bilaterally Cardio Jugular venous distension: no JVD Palpation: normal PMI Rate: regular rate Rhythm: regular rhythm Heart sounds: S1 normal heart sound present, S2 normal heart sound present, no click, no gallops, no murmurs and no rubs GI Auscultation: normal bowel sounds Skin General skin exam: no rashes or lesions noted Neuro General: patient oriented x3 and no focal motor deficits Speech: No Abnormal speech present Extrem General: Yes no clubbing, cyanosis or edema Psych Appearance: grossly normal Office Procedures EKG Details: EKGs shows normal sinus rhythm with low-voltage QRS with incomplete right bundle-branch block with poor R-wave progression most likely lead placement [id number], Complete Assessment & Plan Assessment & Plan (1) Paroxysmal SVT (supraventricular tachycardia): Comment: previously Followed by Dr. Ben Hill Code(s): I47.10 - Supraventricular tachycardia, unspecified Category: Medical Plan: Paroxysmal SVT status post ablation and has done extremely well with no prol onged episodes of palpitation since slow pathway modification. She however continues to have intermittent symptoms of fluttering in his chest which are most likely extra systoles such as PACs/PVCs. Symptoms are infrequent and have increasing frequency with increased personal stress. Mechanism of isolated extra systoles were discussed. This is probably present even before ablation and would not taken care of by ablation and this was discussed with her. Pathophysiology of extra systoles was discussed with her. We discussed treatment options including beta-gadiel therapy although she says she is not that bothered by the symptoms and not knowing that this is potentially explanation she has relief. We discussed about stress mitigation strategies. Avoidance of stimulants such as caffeine and alcohol was discussed. We rediscussed vagal maneuvers as that has small chance of recurrent SVT due to dormant slow pathways. Will follow up in the clinic in 1 year's time, sooner PRN. Thank you for allowing me to partake in her care Coding Level of Care Code Est Pt Level 4 (26448) Complex EM visit Add On G2211 Diagnoses Paroxysmal SVT (supraventricular tachycardia) I47.10 CPT Codes EKG - CPT: 21802-[id number], Complete ([id number])
--- OUTSIDE RECORDS SUMMARY | 2025-07-18 11:18 | XMS_ITS | Clinical Summary ---
Author Organization [facility] Address [address] [place] [address] Care Team Providers Care Fire Prevention Specialist Name Role Phone Liana Shepherd MD Primary [...] Cancer Screening 04/14/2023 04/14/20 21, 05/18/2018, 05/13/2017 RSV Immunization Adult Patients (1 - Risk 50-74 years 1-dose series) 2023 Zoster Vaccines (1 of 2) 2023 Depression [...] Recently Relevant to Health Maintenance Care Teams Fire Prevention Specialist Relationship Specialty Start Date End Date Liana Shepherd MD [address] [place] [address] PCP - General 02/20/24
== END 2025-07-18 10:10 | disposition home or self-care (01) ==
LOC: HO.HCS 09:48
PROVIDERS: PCP Internal Medicine; Visit Provider Internal Medicine Cardiovascular Disease
DX: I47.10 Supraventricular tachycardia, unspecified (principal)
CPT/HCPCS: 93010; 99214

== ENCOUNTER → 2025-07-18 09:47 | Outpatient (BNVA) | payer OTHER, SELFPAY | PROVIDERS: PCP Internal Medicine; Visit Provider Internal Medicine Cardiovascular Disease | DX: I47.10 Supraventricular tachycardia, unspecified (principal) | CPT/HCPCS: 93005 ==

== ENCOUNTER 2025-09-06 14:22 | Outpatient (AMB) | payer OTHER, SELFPAY ==
--- NOTE | 2025-09-06 14:33 | A.OFFPC_ITS ---
Vital Signs 09/06/25 14:34 Height 5 ft 2 in Weight 169 lb BMI 30.9 BP 94/60 Blood Pressure Location Lt brachial Position Sitting Respiration 16 Pulse 73 Pulse Source Pulse Oximeter Temp 98.0 F Temp Source Oral Pulse Oximetry (%) 97 Oxygen Delivery Method Room Air Intake Visit Reasons: PE Intake Note: Pt is here today for her PE: Last mammogram 01/18/23,cologuard 09/30/24 Bar Helper Required: No Allergies acetaminophen (From Tylenol) Allergy (Intermediate, Verified 09/06/25 14:44) Hives latex Allergy (Mild, Verified 09/06/25 14:44) Hives gabapentin (GABAPENTIN) Allergy (Unknown, Verified 09/06/25 14:44) HIVES oxycodone Allergy (Verified 09/06/25 14:44) Itching budesonide (From Symbicort) Adverse Reaction (Mild, Verified 09/06/25 14:44) Itching formoterol (From Symbicort) Adverse Reaction (Mild, Verified 09/06/25 14:44) Itching Medication List - Last Reconciled 09/06/25 by Liana Shepherd MD albuterol sulfate 90 mcg/actuation 2 puffs inhalation Q4-6H PRN 30 days albuterol sulfate 0.63 mg (3 mL) inhalation QID PRN Breo Ellipta 200-25 mcg/dose (fluticasone furoate-vilanterol) 1 inh inhalation DAILY 30 days NS cetirizine (Zyrtec) 10 mg PO DAILY hydroxyzine HCl 10 mg PO DAILY PRN triamcinolone acetonide (Nasacort) 1 spray intranasal DAILY PRN Tobacco use date assessed: 09/06/25 Dental Screening Dental Screen Date: 09/06/25 Did you have a dental visit in the last 12 months?: Yes Did you have a dental problem in the last 6 months where you did not have access to dental care?: No Was dental information given to patient?: Patient has dentist HPI PE HPI Details The patient is a 50 year old female presenting today for physical exam. She has a history of palpitations, which resolved after a radiofrequency cardiac ablation performed by Dr. Lazo at [facility] in May of this year. She was previously followed by Dr. Ben Hill and Dr. Riley for this issue. Her asthma is now well-controlled with Breo Ellipta. Previously was Symbicort but had an allergic reaction to it, which manifested as dry, itchy, splotchy rashes on her arms, legs, thigh, and buttocks. The patient is perimenopausal and reports irregular menstrual cycles. Her current menstrual period has lasted for three weeks with a brief two to three- day break, starting with spotting and progressing to a full period. This pattern has been occurring for several months, and she also experiences fluctuating moods, which she attributes to hormonal changes rather than depression. Her mother began menopause in her 30s and required hormone therapy, while her sister started menopause around age 50-52. She sees Sofia Horne NP, at [facility]. The patient underwent a cholecystectomy in June of the previous year but continues to experience intermittent pain and a feeling of inflammation in the right upper quadrant, which makes it uncomfortable to eat fatty foods. The patient has a significant history of thromboembolic events. The first e pisode of DVT and major pulmonary emboli in both upper lung lobes occurred after an ankle fracture, which was complicated by immobilization, recent cessation of smoking, and initiation of control pills. A second episode occurred after a lumbar discectomy for a herniated disc, a period during which she was also immobile due to pain. Regarding health maintenance, her last mammogram in 2022 was normal. She completed a Cologuard test this year, which was normal, and the next is due in 2026. She has yearly eye exams and sees a dentist every six months for cleanings. Her last labs in August of the previous year were normal. For immunizations, she is up-to-date on her tetanus shot, has had the Prevnar 13 vaccine, and received her flu shot in June at her job. She declines further COVID-19 shots. [facility] Medical History (Updated 09/17/25 @ 01:57 by Liana Shepherd MD) Anxiety disorder History of cholelithiasis Mild intermittent asthma History of endometriosis Family history of thyroid disease in mother Paroxysmal SVT (supraventricular tachycardia) History of miscarriage, not currently Hx pulmonary embolism Hx of deep venous thrombosis History of fracture of right ankle Allergic rhinitis Surgical History (Updated 09/06/25 @ 14:53 by Liana Shepherd MD) History of cardiac radiofrequency ablation (RFA) History of appendectomy History of lumbar discectomy History of laparoscopic cholecystectomy (~08/19/23) Previous back surgery Family History Mother No problems noted. Daughter Owen-Danlos syndrome Sister Bronchial asthma Substance use disorder Mental health disorder Brother Drug abuse Suicide Mental health disorder Substance use disorder Father Substance use disorder Maternal Aunt Substance use disorder Maternal Grandfather Substance use disorder Social History Housing: House Alcohol intake: current Alcohol intake frequency: holidays/special occasions only Patient Tobacco Use Status: Former Tobacco user e-Cigarette/Vaping Use: Never Used service: No Current occupational status: employed Cognitive needs: No Hearing needs: No Vision needs: Yes Female Reproductive History Menstrual Date of last menstrual period: 09/06/25 Other: [facility] in [facility] DR Sofia Horne Questionnaire PHQ-9 Over the last 2 weeks, how often have you been bothered by any of the following problems? 1. Little interest or pleasure in doing things: several days 2. Feeling down, depressed, or hopeless: several days 3. Trouble falling or staying asleep, or sleeping too much: several days 4. Feeling tired or having little energy: several days 5. Poor appetite or overeating: several days 6. Feeling bad about yourself - or that you are a failure or have let yourself or your family down: not at all 7. Trouble concentrating on things, such as reading the newspaper or watching television: several days 8. Moving or speaking so slowly that other people could have noticed. Or the opposite - being so fidgety or restless that you have been moving around a lot more than usual: not at all 9. Thoughts that you would be better off or of hurting yourself in some way: not at all Total score: 6 Depression Screening Interpretation: Negative (due to perimenopausal ) Depression Screening Done: Yes Source: Developed by Drs. Mickey Thurman, Ramona Zavala, Shaan Chapin and colleagues, with an educational chucky from [employer]. Thrive Questionnaire Date Thrive assessed: 05/25/24 I am a: Patient What is your living situation today?: I have a steady place to live Within the past 12 months, did the food you bought not last and you didn't have the money to get more?: Never true Within the past 12 months, did you worry whether your food would run out before you got money to buy more?: Never true Do you have trouble paying for medicines?: No Do you have trouble getting transportation to medical appointments?: No Do you have trouble paying your heating and electricity bill?: No Do you have trouble taking care of your child, family member or friend?: No Do you have trouble with day-to-day activities such as bathing, preparing meals, shopping, managing finances, etc.?: No Are you currently unemployed and looking for a job?: No Are you interested in more education?: No Please select the resources that you would like help with: None Currently or been in a relationship where the following occur: No concerns reported THRIVE Score: 0 AUDIT C Alcohol Use Questionnaire (AUDIT-C) 1. How often do you have a drink containing alcohol?: Monthly or less 2. How many drinks containing alcohol do you have on a typical day when you are drinking?: 1 or 2 3. How often do you have six or more drinks on one occasion?: Never Total Score: 1 HANNAH-7 AMB Questionnaire HANNAH-7 Date HANNAH - 7 assessed: 08/30/24 Feeling nervous, anxious, or on edge: 1 = Several days Not being able to stop or control worryin = Several days Worrying too much about different things: 1 = Several days Trouble relaxin = Several days Being so restless that it is hard to sit still: 1 = Several days Becoming easily annoyed or irritable: 1 = Several days Feeling afraid as if something awful might happen: 1 = Several days Total HANNAH-7 score (0-4 normal; 5-9 mild; 10-14 moderate; 15-21 severe): 7 Source: Developed by Drs. Mickey Thurman, Ramona Zavala, Shaan Chapin and colleagues, with an educational chucky from [employer]. Review of Systems Const Denies fatigue, Denies fever(s) and Denies weakness Eyes Details: has appt with Dr Wolfe in 10/2025 ENT Details: Dental cleaning Every 6 months Denies dizziness Card Denies chest pain, Denies leg edema, Denies lightheadedness, Denies palpitations, Denies dyspnea, Denies dyspnea on exertion and Denies orthopnea Resp Denies cough, Denies dyspnea and Denies dyspnea on exertion GI Denies hematochezia and Denies change in stool character Reports no additional complaints Musc Denies abnormal gait, Denies muscle weakness, Denies numbness, Denies radiating pain into limb and Denies tingling Skin/Breast Denies breast pain, Denies breast mass and Denies rash Neuro Denies Abnormal speech present, Denies abnormal gait, Denies dizziness, Denies numbness, Denies tingling and Denies weakness Psych Reports no additional complaints Endo Denies fatigue and Denies palpitations Thad/Lymph Reports no additional complaints Aller/Immun Reports no additional complaints Physical exam (Primary Care) Vital Signs: Last Vital Signs Temp 98.0 F 09/06/25 14:34 Pulse 73 09/06/25 14:34 Resp 16 09/06/25 14:34 BP 94/60 09/06/25 14:34 Pulse Ox 97 09/06/25 14:34 Oxygen Delivery Method Room Air 09/06/25 14:34 BMI result Body Mass Index 30.9 Tobacco/Smoking Status: Tobacco use Status Tobacco use date assessed 09/06/25 09/06/25 14:41 Patient Tobacco Use Status Former Tobacco user 09/06/25 14:41 e-Cigarette/Vaping Use Never Used 09/06/25 14:41 PHQ-9: PHQ-9 Score PHQ-9: Total score 6 09/06/25 15:01 Depression Screening Interpretation: Negative (due to perimenopausal ) Thrive Assessment: Date of Thrive Assessment Date Thrive assessed 05/25/24 09/06/25 14:41 Currently or been in a relationship where the following occur: No concerns reported Const General: no acute distress and alert Orientation/consciousness: patient oriented x3 HENMT Ears: external ears normal, TM's normal bilaterally and EAC's normal General nose exam: Normal external nose present Mouth: Normal oral and palatal mucosa present and moist mucous membranes Eyes General: appearance normal, both eyes and all related structures Conjunctivae: conjunctivae normal Sclerae: sclerae normal Pupils: Equal, round and reactive pupils present EOM: EOMs intact bilaterally Neck Neck: Yes full ROM, Yes no lymphadenopathy and Yes supple Chest Breast/axilla palpation: normal palpation of the breasts Resp Effort & Inspection: normal respiratory effort and able to speak in complete sentences Auscultation: clear to auscultation bilaterally Cardio Rate: regular rate Rhythm: regular rhythm Heart sounds: S1 normal heart sound present and S2 normal heart sound present GI Palpation (GI): Soft to palpation, nontender and no masses Auscultation: normal bowel sounds General: Yes deferred (Goes to [facility]) Back/Spine/Pelvis Back: No back tenderness Skin General skin exam: no rashes or lesions noted Neuro General: patient oriented x3, gait normal, tone normal, moves all extremities, Normal light touch and pain sensation and no focal motor deficits Cranial nerves: Yes CN's II-XII intact bilaterally and Yes Equal, round and reactive pupils present Cognition (Neuro): normal cognition Speech: No Abnormal speech present Extrem General: Yes full ROM, Yes no joint enlargement, Yes no clubbing, cyanosis or edema and Yes no calf tenderness Psych Appearance: grossly normal and well kempt Mental Status: mental status grossly normal Speech and movement: Normal speech and movement present Affect: normal affect Coding Level of Care Code Est Pt Prev Care 40-64y(65099) Diagnoses Annual visit for general adult medical examination with abnormal findings Z00.01 Abdominal discomfort in right upper quadrant R10.11 Mild intermittent asthma without complication J45.20 Asthma complication type: uncomplicated Seasonal allergic rhinitis, unspecified trigger J30.2 Allergic rhinitis trigger: unspecified Allergic rhinitis seasonality: seasonal Generalized anxiety disorder F41.1 Anxiety disorder type: generalized anxiety disorder Assessment & Plan Assessment & Plan (1) Annual visit for general adult medical examination with abnormal findings: Code(s): Z00.01 - Encounter for general adult medical examination with abnormal findings Plan: Will check appropriate labs. Continue with regular dental visit every 6 months and regular eye exams, at least every 2 years. Take adequate calcium in diet and vitamin-D 3 at 2000 IU per cap once a day, in addition to weight-bearing exercises to help maintain good muscle tone and weight control. Instructed to do self-breast exam, and continue to get yearly mammogram, up-to-date with her cervical cancer screening and pelvic exam, sees [facility]. Up-to-date with vaccinations and colon cancer screening (2) Abdominal discomfort in right upper quadrant: Code(s): R10.11 - Right upper quadrant pain Plan: Ordered a ultrasound of abdomen (3) Mild intermittent asthma: Code(s): J45.20 - Mild intermittent asthma, uncomplicated Category: Medical Qualifiers: Asthma complication type: uncomplicated Qualified Code(s): J45.20 - Mild intermittent asthma, uncomplicated Plan: Followed by Pulmonary Clinic, controlled on Breo Ellipta (4) Allergic rhinitis: Comment: CHRONIC ALLERGIC RHINITIS SECONDARY TO ENVIRONMENTAL AND SEASONAL ALLERGIES. SHE DID MUCH BETTER ON ON MONTELUKAST BUT HAD TO STOP IT BECAUSE OF SIDE EFFECT OF DEPRESSION. Code(s): J30.9 - Allergic rhinitis, unspecified Category: Medical Qualifiers: Allergic rhinitis trigger: unspecified Allergic rhinitis seasonality: seasonal Qualified Code(s): J30.2 - Other seasonal allergic rhinitis Plan: Currently on cetirizine as needed and Nasacort nasal spray (5) Anxiety disorder: Code(s): F41.9 - Anxiety disorder, unspecified Category: Medical Qualifiers: Anxiety disorder type: generalized anxiety disorder Qualified Code(s): F41.1 - Generalized anxiety disorder Plan: Prescription sent for hydroxyzine HCl 10 mg per tablet to take as needed for acute anxiety attacks. Orders: Orders Vitamin D 25-OH Total 09/10/25 Z13.220 - Encounter for screening for lipoid disorders, Z13.1 - Encounter for screening for diabetes mellitus, Z78.0 - Asymptomatic menopausal state, Z00.01 - Encounter for general adult medical examination with abnormal findings Lipid Panel 09/10/25 Z13.220 - Encounter for screening for lipoid disorders, Z13.1 - Encounter for screening for diabetes mellitus, Z78.0 - Asymptomatic menopausal state, Z00.01 - Encounter for general adult medical examination with abnormal findings Basic Metabolic Panel Fasting 09/10/25 I47.10 - Supraventricular tachycardia, unspecified, E66.9 - Obesity, unspecified US abdomen complete 09/06/25 R10.11 - Right upper quadrant pain Medications: Refilled hydroxyzine HCl 10 mg PO DAILY PRN 30 tabs 1RF Anxiety attacks
[2025-09-06 14:34] VITALS: BP 94/60; PULSE 73; RESP 16; TEMP 36.7; O2SAT 97; BMI 30.9
--- OUTSIDE RECORDS SUMMARY | 2025-09-06 18:39 | XMS_ITS | Clinical Summary ---
Author Organization [facility] Address [address] [place] [address] Care Team Providers Care [place] Records Management Officer Name Role Phone Liana Shepherd MD Primary [...] Years Used Date Smoking Tobacco: Former Cigarettes 0.5 Q uit: 09/22/2014 Smokeless Tobacco: Never Alcohol Use Standard Drinks/Week Comments Yes 0 (1 standard drink = 0.6 oz pur e alcohol) Comments Unknown Sex and Gender Information Value Date Recorded Sex Assigned at Not on file Legal Sex Female 1:03 PM EST Gender Identity Not on file Sexual Orientation Not on file Last Filed Vital Signs Vital Sign Reading [...] Recently Relevant to Health Maintenance Care Teams County Records Management Officer Relationship Specialty Start Date End Date Liana Shepherd MD [address] [place] [address] PCP - General 02/20/24
== END 2025-09-06 15:14 | disposition home or self-care (01) ==
LOC: HO.HMCC 14:23
PROVIDERS: PCP Internal Medicine; Visit Provider Internal Medicine
DX: Z00.01 Encounter for general adult medical examination with abnormal findings (principal); R10.11 Right upper quadrant pain; J45.20 Mild intermittent asthma, uncomplicated; J30.2 Other seasonal allergic rhinitis; F41.1 Generalized anxiety disorder

== ENCOUNTER 2025-09-10 09:30 | Outpatient (REF) | payer OTHER, SELFPAY ==
--- OUTSIDE RECORDS SUMMARY | 2025-09-10 09:32 | XMS_ITS | Clinical Summary ---
Author Organization [facility] Address [address] [place] [address] Care Team Providers Care Miner Pick Name Role Phone Liana Shepherd MD Primary [...] Recently Relevant to Health Maintenance Care Teams Miner Pick Relationship Specialty Start Date End Date Liana Shepherd MD [address] [place] [address] PCP - General 02/20/24
[2025-09-10 12:27] LABS: Anion Gap 11 (12-20); Blood Urea Nitrogen 12 mg/dL (9-16); Calcium 9.3 mg/dL (8.4-10.2); Carbon Dioxide 26 mmol/L (22-29); Chloride 108 mmol/L (96-108); Cholesterol 213 mg/dL (<200); Estimated Glomerular Filt Rate > 60; HDL Cholesterol 49 mg/dL (>40); Potassium 4.0 mmol/L (3.3-5.1); Sodium 141 mmol/L (135-145); Triglycerides 190 mg/dL (<150)
== END 2025-09-10 09:31 | disposition home or self-care (01) ==
LOC: HO.HMGCLDS 09:30
PROVIDERS: PCP Internal Medicine; Visit Provider Internal Medicine
DX: Z00.01 Encounter for general adult medical examination with abnormal findings (principal); Z13.220 Encounter for screening for lipoid disorders; Z13.1 Encounter for screening for diabetes mellitus; Z78.0 Asymptomatic menopausal state; I47.10 Supraventricular tachycardia, unspecified; E66.9 Obesity, unspecified; Z13.29 Encounter for screening for other suspected endocrine disorder
CPT/HCPCS: 36415; 80048; 80061; 82306